=== PATIENT | female | born 1980 | race Caucasian/White ===

== ENCOUNTER 2017-02-20 17:55 | Emergency (ER) | payer MEDICAID ==
[2017-02-20] MEDS ORDERED: LIDOCAINE 5% (700 MG) TRANSDERMAL ADH..PATCH TP ONE (19:54)
[2017-02-20] MEDS ORDERED: KETOROLAC TROMETHAMINE INJ/PF 30 MG/1 ML SDV IV ONE (19:54)
[2017-02-20] MEDS ORDERED: ONDANSETRON HCL INJ/PF 4 MG/2 ML SDV IV ONE (19:54)
[2017-02-20] MEDS ORDERED: DEXAMETHASONE SOD PHOSPHATE INJ 4 MG/1 ML VIAL IV ONE (19:55)
[2017-02-20] MEDS ORDERED: FENTANYL CITRATE INJ/PF 100 MCG/2 ML AMPUL IV ONE (19:55)
[2017-02-20] MEDS ORDERED: HYDROCORTISONE SOD SUCCINATE INJ/PF 100 MG/2 ML SDV IV ONE (19:56)
--- NOTE | 2017-02-20 19:58 | ER Document Report ---
ED General - General Chief Complaint: Pain All Over Stated Complaint: LEG/BACK PAIN Time Seen by Provider: 02/20/17 18:22 Notes: Patient is a 36-year-old female with a past medical history of chronic pain currently on fentanyl patches and hydrocodone, hypothyroidism, Bird's disease , appendectomy, cholecystectomy, oophorectomy who presents with 1 week of progressively worsening low back pain as well as nausea and lightheadedness. Patient is an extremely difficult historian, highly anxious during exam taking infrequently stating that she needs to vomit without actually vomiting. Patient 's main concern appears to be that her back pain has been getting worse after a near syncopal episode 1 week ago. Patient states she was sitting in the toilet and blacked out and woke up on the floor and since that time has had worsening pain in her back which she describes a severe, constant, throbbing pain. Nothing improves or worsens her pain. Patient states that her pain is so bad that "I lay in bed pretty much all day". Patient admits that she is neither wheelchair-bound nor nonambulatory. She has not had any bowel or bladder incontinence since this accident. She has not followed up with primary care doctor regarding today's concerns. 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 However of note the [place] controlled substance database does note the patient regularly obtained narcotic pain medications through her primary care physician on a monthly basis. TRAVEL OUTSIDE OF THE [place] IN LAST 30 DAYS: No - Related Data Allergies/Adverse Reactions: amoxicillin [Amoxicillin] Allergy (Verified 12/16/15 17:05) ciprofloxacin [From Cipro] Allergy (Verified 12/16/15 17:05) morphine [Morphine] Allergy (Verified 12/16/15 17:05) tramadol [Tramadol] Allergy (Verified 12/16/15 17:05) cillin Allergy (Uncoded 11/15/15 19:52) Past Medical History - General Information source: Patient - Social History Smoking Status: Never Smoker Frequency of alcohol use: None Drug Abuse: None Lives with: Spouse/Significant other Family History: Reviewed & Not Pertinent - Past Medical History Cardiac Medical History: Reports: Hx Hypercholesterolemia, Hx Hypertension Endocrine Medical History: Reports: Hx Graves' Disease, Hx Hypothyroidism Musculoskeltal Medical History: Reports Hx Fibromyalgia Psychiatric Medical History: Reports: Hx Anxiety, Hx Depression Past Surgical History: Reports: Hx Appendectomy, Hx Section - x2, Hx Cholecystectomy, Hx Hysterectomy, Hx Thyroid Surgery Review of Systems - Review of Systems Notes: Constitutional: Negative for fever. HENT: Negative for sore throat. Eyes: Negative for visual changes. Cardiovascular: Negative for chest pain. Respiratory: Negative for shortness of breath. Gastrointestinal: Negative for abdominal pain, vomiting or diarrhea. Genitourinary: Negative for dysuria. Musculoskeletal: Positive for back pain. Skin: Negative for rash. Neurological: Negative for headaches, weakness or numbness. 10 point ROS negative except as marked above and in HPI. Physical Exam - Vital signs Vitals: Temp Pulse Resp BP Pulse Ox 98.0 F 76 18 129/82 H 98 02/20/17 18:45 02/20/17 18:45 02/20/17 18:45 02/20/17 18:45 02/20/17 18:45 Interpretation: Normal Notes: PHYSICAL EXAMINATION: GENERAL: Well-appearing, well-nourished and in no acute distress. HEAD: Atraumatic, normocephalic. EYES: Pupils equal round and reactive to light, extraocular movements intact, sclera anicteric, conjunctiva are normal. ENT: nares patent, oropharynx clear without exudates. Moist mucous membranes. NECK: Normal range of motion, supple without lymphadenopathy LUNGS: Breath sounds clear to auscultation bilaterally and equal. No wheezes rales or rhonchi. HEART: Regular rate and rhythm without murmurs ABDOMEN: Soft, nontender, normoactive bowel sounds. No guarding, no rebound. No masses appreciated. EXTREMITIES: Normal range of motion, no pitting or edema. No cyanosis. Neck: No midline step-offs or deformities NEUROLOGICAL: 5 out of 5 strength both distally and proximally bilateral lower extremities. 2+ patellar reflexes bilaterally. No clonus. Sensation grossly intact in the bilateral lower extremities. Patient is able to ambulate without difficulty. PSYCH: Highly anxious, labile mood SKIN: Warm, Dry, normal turgor, no rashes or lesions noted. Course - Re-evaluation Re-evalutation: 02/20/17 19:56 Patient presents with multiple vague complaints that did not appear to be concerning for any acute life-threatening pathology. Vitals are within normal limits at triage. Physical examination is unremarkable. Patient has tolerated oral intake without difficulty. Patient was not noted to be in distress at any point during their ER visit. Patient did complain of chronic, unchanged low back pain as well as right hip pain. She was also complaining of nausea but had no vomiting during her evaluation. She has no neurologic deficit, bowel or bladder incontinence, urinary retention, history of IV drug use, no fever, no difficulty with ambulation. At this time, based on the reassuring evaluation, I do not suspect an acute NC, pulmonary embolus, aortic dissection, acute intra- abdominal pathology, stroke, or sepsis. 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 I have referred her to a local primary care doctor for follow-up these issues as right now it appears that the only medication she is receiving is chronic fentanyl patches and hydrocodone. Patient states that despite her having a diagnosis of severe hypothyroidism and Bird's disease she has not been on any steroids or levothyroxine for over 1 year. Will obtain basic laboratories Will discharge with return precautions and follow-up recommendations. Verbal discharge instructions given a the bedside and opportunity for questions given. Medication warnings reviewed. Patient is in agreement with this plan and has verbalized understanding of return precautions and the need for primary care follow-up in the next 24-72 hours. - Vital Signs Vital signs: Temp Pulse Resp BP Pulse Ox 97.7 F 79 12 97/63 L 96 02/20/17 22:58 02/20/17 22:58 02/20/17 22:58 02/20/17 22:58 02/20/17 22:58 - Laboratory Result Diagrams: 02/20/17 18:58 02/20/17 20:10 Laboratory results interpreted by me: 02/20/17 02/20/17 02/20/17 18:58 20:10 20:10 WBC 11.0 H RDW 15.6 H Seg Neutrophils % 81.1 H Monocytes % 2.4 L Absolute Neutrophils 9.0 H Potassium 3.1 L BUN 21 H Glucose 116 H Total Protein 8.3 H TSH 148.00 H Free T4 0.11 L Urine Protein Urine Ketones Urine Blood Urine Nitrite Ur Leukocyte Esterase Urine Ascorbic Acid 02/20/17 20:50 WBC RDW Seg Neutrophils % Monocytes % Absolute Neutrophils Potassium BUN Glucose Total Protein TSH Free T4 Urine Protein 100 H Urine Ketones 80 H Urine Blood SMALL H Urine Nitrite POSITIVE H Ur Leukocyte Esterase LARGE H Urine Ascorbic Acid 20 H - Diagnostic Test Radiology reviewed: Reports reviewed Discharge - Discharge Clinical Impression: Hypokalemia Hypothyroidism Qualifiers: Hypothyroidism type: unspecified Qualified Code(s): E03.9 - Hypothyroidism, unspecified Chronic pain Qualifiers: Chronic pain type: other chronic pain Qualified Code(s): G89.29 - Other chronic pain Condition: Good Disposition: HOME, SELF-CARE Additional Instructions: Please take the levothyroxine as directed. It is critical that you follow-up with a primary livestock caretaker who can get you into the appropriate endocrinology services and prescribe your medicines. Please return to the emergency room immediately if you experience any concerning symptoms including high fevers, severe headache, chest pain, difficulty breathing, abdominal pain, slurred speech, numbness or weakness in your arms or legs, or any other symptom that concerns you. Prescriptions: Cephalexin Monohydrate [Keflex 500 mg Capsule] 500 mg PO QID #20 capsule Levothyroxine Sodium [Levo-T] 200 mcg PO DAILY #30 tablet Referrals: OLU ROBLES MD [ACTIVE STAFF] - Follow up in 3-5 days
[2017-02-20 20:09] LABS: ABSOLUTE EOSINOPHILS # (AUTO) 0.1 10^3/uL (0.0-0.6); ABSOLUTE LYMPHOCYTES (AUTO) 1.7 10^3/uL (0.5-4.7); ABSOLUTE MONOCYTES (AUTO) 0.3 10^3/uL (0.1-1.4); BASOPHILS % (AUTO) 0.3 % (0-2); EOSINOPHILS % (AUTO) 0.6 % (0-6); HEMATOCRIT 38.7 % (36.0-47.0); HEMOGLOBIN 12.7 g/dL (12.0-15.5); HGB HCT DIFFERENCE -0.6; LYMPHOCYTES % (AUTO) 15.6 % (13-45); MEAN CORPUSCULAR HEMOGLOBIN 30.8 pg (27.0-33.4); MEAN CORPUSCULAR HGB CONC 32.8 g/dL (32.0-36.0); MEAN CORPUSCULAR VOLUME 94 fl (80-97); MONOCYTES % (AUTO) 2.4 % (3-13); RED BLOOD COUNT 4.12 10^6/uL (3.72-5.28); RED CELL DISTRIBUTION WIDTH 15.6 % (11.5-14.0); SEGMENTED NEUTROPHILS % (AUTO) 81.1 % (42-78)
[2017-02-20 20:51] LABS: ALANINE AMINOTRANSFERASE 20 U/L (9-52); ALBUMIN 4.8 g/dL (3.5-5.0); ALKALINE PHOSPHATASE 98 U/L (38-126); ANION GAP 17 (5-19); ASPARTATE AMINO TRANSFERASE 28 U/L (14-36); BILIRUBIN,DIRECT 0.3 mg/dL (0.0-0.4); BILIRUBIN,TOTAL 0.8 mg/dL (0.2-1.3); BLOOD UREA NITROGEN 21 mg/dL (7-20); CALCIUM 9.6 mg/dL (8.4-10.2); CARBON DIOXIDE 22 mmol/L (22-30); CHLORIDE 103 mmol/L (98-107); CREATININE RESULT 0.82 mg/dL (0.52-1.25); GLUCOSE 116 mg/dL (75-110); LIPASE 79.3 U/L (23-300); POTASSIUM 3.1 mmol/L (3.6-5.0); SODIUM 141.9 mmol/L (137-145); TOTAL PROTEIN 8.3 g/dL (6.3-8.2)
--- NOTE | 2017-02-20 20:55 | RADIOLOGY REPORT (SQ) ---
EXAM DESCRIPTION: ABDOMEN 2 VIEWS COMPLETED DATE/TIME: 02/20/2017 8:41 pm REASON FOR STUDY: ab pain, vomiting COMPARISON: 06/06/2016 NUMBER OF VIEWS: Two views. TECHNIQUE: Supine and erect/decubitus radiographic images of the abdomen acquired. LIMITATIONS: None. FINDINGS: FREE AIR: None. No abnormal gas collections. LUNG BASES: Clear. BOWEL GAS PATTERN: Nonobstructive pattern. No dilated loops or air fluid levels. CALCIFICATIONS: No suspicious calcifications. SOFT TISSUES: No gross mass or suggestion of organomegaly. HARDWARE: Right upper quadrant clips. BONES: No acute fracture. No worrisome bone lesions. OTHER: No other significant finding. IMPRESSION: NO RADIOGRAPHIC EVIDENCE FOR ACUTE ABDOMINAL DISEASE. TECHNICAL DOCUMENTATION: JOB ID: [id number] [employer]- All Rights Reserved
[2017-02-20 21:16] LABS: APPEARANCE,URINE SLIGHTLY-CLOUDY; BILIRUBIN,URINE NEGATIVE (NEGATIVE); GLUCOSE, URINE NEGATIVE (NEGATIVE); KETONES,URINE 80 mg/dL (NEGATIVE); LEUKOCYTE ESTERASE,URINE LARGE (NEGATIVE); NITRITE,URINE POSITIVE (NEGATIVE); PROTEIN,URINE 100 mg/dL (NEGATIVE); URINE SPECIFIC GRAVITY 1.027; UROBILINOGEN,URINE NEGATIVE mg/dL (<2.0)
[2017-02-20] MEDS ORDERED: NORMAL SALINE 1000 ML 1,000 ML IV ONE (21:39)
[2017-02-20] MEDS ORDERED: LEVOTHYROXINE SODIUM 0.1 MG TABLET PO ONE (22:34)
[2017-02-20 23:01] VITALS: BP 97/63
[2017-02-20] MEDS ORDERED: MAGNESIUM OXIDE 400 MG TABLET PO ONE (23:04)
[2017-02-20] MEDS ORDERED: POTASSIUM CHLORIDE 10 MEQ TABLET.SA PO ONE (23:04)
[2017-02-20] MEDS ORDERED: CEPHALEXIN 500 MG CAPSULE PO ONE (23:04)
== END 2017-02-20 23:20 | disposition home or self-care (01) ==
LOC: ER 17:55
DX: E87.6 Hypokalemia (principal); E03.9 Hypothyroidism, unspecified; G89.29 Other chronic pain; R52 Pain, unspecified; Z79.899 Other long term (current) drug therapy; M54.9 Dorsalgia, unspecified
CPT/HCPCS: 99284; 96361; 96374; 96375; 36415; 84439; 83690; 84443; 84703; 85025; 80053; 81001; 74020; J3010; J1720; J1885; J2405; J7030

== ENCOUNTER 2017-05-01 08:26 | Emergency (ER) | payer MEDICAID ==
--- NOTE | 2017-05-01 09:34 | ER Document Report ---
ED General - General Information source: Patient TRAVEL OUTSIDE OF THE [place] IN LAST 30 DAYS: No <JUAN DE GUZMAN - Last Filed: 05/01/17 09:29> <ANTONIO CAMEJO - Last Filed: 05/01/17 14:40> - General Stated Complaint: WEAKNESS Time Seen by Provider: 05/01/17 09:13 Notes: Patient is a 36 year old female who presents to the ED with complaints of weakness, tremors and muscle twitching. Patient has not slept in 2 days. Patient states she is dizzy and has blurred and double vision. Patient has been able to eat normally. Patient states she is not taking her medication for Addisons because she cannot get a doctor to prescribe them for. When she was in the ED on 02/20/2017 she was given a prescription for her thyroid medication she states. Patient was found to be non complaint on that day with all prescription medication except for her Narcotic pain medication. 29 days ago patient filled her Fentanyl patch and Hydrocodone. Today patient adds that she is having extreme back pain and she is out of her Fentanyl patch. (JUAN DE GUZMAN) This female patient comes emergency room by EMS complaining of weakness for 2 days worse today, muscle spasms, unable to sleep, dizziness. The patient filled a prescription for 15 fentanyl patches on 04/03/2017. That should last for 45 days, or another 2 weeks from today. She states she has to left and is not wearing one now.. She states she has hydrocodone at home and took one yesterday, but the urine drug screen done today is negative for opiates. The spouse reports that she seems asked the same questions repeatedly, seems to be forgetful and cannot remember having this done things. He and she both claim this has never happened before. Review of the records shows she was seen here on 10/27/2015 shortly after moving here from [place] when she reported blacking out spell and then finding herself walking down the road 3-1/2 miles from her house. She did have a negative CT scan of the head done on that visit. At that time the provider contacted her doctor in [place] who stated he was never able to prove conclusively that she did have Bird's, and also reported she had been on high-dose chronic narcotic medication for at least 2 years. (ANTONIO CAMEJO) - Related Data Allergies/Adverse Reactions: amoxicillin [Amoxicillin] Allergy (Verified 05/01/17 13:48) ciprofloxacin [From Cipro] Allergy (Verified 05/01/17 13:48) morphine [Morphine] Allergy (Verified 05/01/17 13:48) tramadol [Tramadol] Allergy (Verified 05/01/17 13:48) cillin Allergy (Uncoded 05/01/17 13:48) Past Medical History - General Information source: Patient - Social History Smoking Status: Unknown if Ever Smoked Family History: Reviewed & Not Pertinent - Past Medical History Cardiac Medical History: Reports: Hx Hypercholesterolemia, Hx Hypertension Endocrine Medical History: Reports: Hx Graves' Disease, Hx Hypothyroidism Musculoskeltal Medical History: Reports Hx Fibromyalgia Psychiatric Medical History: Reports: Hx Anxiety, Hx Depression Past Surgical History: Reports: Hx Appendectomy, Hx Section - x2, Hx Cholecystectomy, Hx Hysterectomy, Hx Thyroid Surgery <JUAN DE GUZMAN - Last Filed: 05/01/17 09:29> Review of Systems - Review of Systems Constitutional: See HPI, Weakness EENT: See HPI, Blurred vision, Double vision Cardiovascular: See HPI, Dizziness Respiratory: No symptoms reported Gastrointestinal: No symptoms reported Genitourinary: No symptoms reported Female Genitourinary: No symptoms reported Musculoskeletal: See HPI, Back pain, Other - muscle twitching Skin: No symptoms reported Hematologic/Lymphatic: No symptoms reported Neurological/Psychological: See HPI, Weakness, Tremor <JUAN DE GUZMAN - Last Filed: 05/01/17 09:29> Physical Exam - General General appearance: Alert, Other - looks at you with wide eyes, rocking back and forth, talking a lot - HEENT Head: Normocephalic, Atraumatic Eyes: Normal Extraocular movements intact: Yes Pupils: PERRL Mucous membranes: Dry - Respiratory Respiratory status: No respiratory distress Breath sounds: Normal - Cardiovascular Rhythm: Regular Heart sounds: Normal auscultation Murmur: No - Abdominal Inspection: Normal - Back Back: Normal - Extremities General upper extremity: Normal inspection, Normal ROM, Other - she is jerking her upper extremities General lower extremity: Normal inspection, Normal ROM - Neurological Neuro grossly intact: Yes - Skin Skin Temperature: Warm Skin Moisture: Dry Skin Color: Normal <JUAN DE GUZMAN - Last Filed: 05/01/17 09:29> - Vital signs Vitals: Resp Pulse Ox 14 99 05/01/17 08:54 05/01/17 08:54 Course <JUAN DE GUZMAN - Last Filed: 05/01/17 09:29> - Laboratory Result Diagrams: 05/01/17 09:15 05/01/17 09:15 - Diagnostic Test Radiology reviewed: Image reviewed, Reports reviewed - The patient did not cooperate staying still, but there is no gross abnormality seen on CT scan of the head <ANTONIO CAMEJO - Last Filed: 05/01/17 14:40> - Re-evaluation Re-evalutation: 05/01/17 12:08 Patient was given Zanaflex which she has been prescribed many times in the past. She is also given 100 mg of Solu-Cortef IV, 1 L of normal saline IV, and 100 mcg of Synthroid. At this time she is sound asleep and snoring quite loudly with a pulse in the 70s and a pulse ox of 97% on room air. She had previously stated that she had not been able to sleep due to the muscle twitching and back pain. She does have Zanaflex at home by history. 05/01/17 13:40 After the patient woke up I was speaking with her and the spouse for quite some time she seemed quite relaxed, they both are concerned about her not remembering things that she has just done. At this past left the room she continued to inquire about what could be wrong. I told her that there is a good possibility this was psychiatric, and as an example I described the twitching that she had been doing. She immediately began twitching just as she did when I first saw her a few hours ago. She had not been twitching the entire time since she fell asleep until just after I mentioned it. A CT scan of the brain will be done to satisfy the patient and her spouse and to help exclude an emergency neurological problem. 05/01/17 14:33 The patient is again sound asleep and snoring. I reviewed the negative scan results with the spouse. I then reviewed a prior visit in November 2015 when she came in as an involuntary commitment from the crisis center. At that time it reported she was developing some stuttering and cramping in her legs since running out of pain medication. I told the spouse that is clearly a psychiatric response to stress and that is why I think the same thing is occurring now. The fact that her urine drug screen is negative for opiates would suggest that she probably has run out of her hydrocodone. The fact that she does not have fentanyl patch on would suggest that she probably has run out of her fentanyl patches. Given the large doses of narcotics she has taken for such a long time it would be unlikely the patient would voluntarily stop taking the medication I have advised spouse to follow-up with primary care provider for referral to a psychologist or psychiatrist to further evaluate her symptoms if they continue. She will receive a prescription for the hydrocortisone because I have no way of knowing for certain if she really does need that medication. It appears she has had a month supply prescribed from this emergency room on 3 other occasions. (ANTONIO CAMEJO) - Vital Signs Vital signs: Temp Pulse Resp BP Pulse Ox 10 L 126/67 H 100 05/01/17 14:02 05/01/17 14:02 05/01/17 14:02 - Laboratory Laboratory results interpreted by me: 05/01/17 05/01/17 05/01/17 09:15 09:15 09:15 RBC 3.55 L Hgb 11.6 L Hct 33.3 L Sodium 147.2 H Chloride 111 H Free T4 0.68 L Free T3 pg/mL 2.32 L Urine Nitrite 05/01/17 10:13 RBC Hgb Hct Sodium Chloride Free T4 Free T3 pg/mL Urine Nitrite POSITIVE H Discharge <JUAN DE GUZMAN - Last Filed: 05/01/17 09:29> <ANTONIO CAMEJO - Last Filed: 05/01/17 14:40> - Discharge Clinical Impression: Muscle twitching, Memory problem Unable to sleep Qualifiers: Insomnia type: unspecified Qualified Code(s): G47.00 - Insomnia, unspecified Condition: Stable Disposition: HOME, SELF-CARE Additional Instructions: Your blood work, urine, and brain scan were all unremarkable. There is no clear explanation for your symptoms of twitching and jerking and memory problems. These symptoms are often due to underlying psychological problems. You were able to sleep quite deeply and for a good while after receiving 1 dose of Zanaflex(tizanidine). You report that you do have all of your medications except for the hydrocortisone. You will receive a prescription for the hydrocortisone. You should continue your regular medications. You should follow-up with your primary care provider this week for further evaluation of your neurological symptoms and referral to a psychologist or psychiatrist if they feel it is warranted. RETURN TO THE EMERGENCY ROOM IF ANY NEW OR WORSENING SYMPTOMS. Prescriptions: Hydrocortisone 20 mg PO BID #60 tablet Scribe Attestation: 05/01/17 12:10 I personally performed the services described in the documentation, reviewed and edited the documentation which was dictated to the scribe in my presence, and it accurately records my words and actions. (ANTONIO CAMEJO) Scribe Documentation - Scribe Written by Kinjal:: kinjal Larios, 05/01/2017, 0929 acting as scribe for :: Janet <JUAN DE GUZMAN - Last Filed: 05/01/17 09:29>
[2017-05-01] MEDS ORDERED: NORMAL SALINE 1000 ML 1,000 ML IV ONE (09:36)
[2017-05-01] MEDS ORDERED: HYDROCORTISONE SOD SUCCINATE INJ/PF 100 MG/2 ML SDV IV ONE (09:37)
[2017-05-01 09:44] LABS: ABSOLUTE EOSINOPHILS # (AUTO) 0.1 10^3/uL (0.0-0.6); ABSOLUTE LYMPHOCYTES (AUTO) 3.1 10^3/uL (0.5-4.7); ABSOLUTE MONOCYTES (AUTO) 0.6 10^3/uL (0.1-1.4); ABSOLUTE NEUT (AUTO) 4.6 10^3/uL (1.7-8.2); BASOPHILS % (AUTO) 0.5 % (0-2); EOSINOPHILS % (AUTO) 1.6 % (0-6); HEMATOCRIT 33.3 % (36.0-47.0); HEMOGLOBIN 11.6 g/dL (12.0-15.5); HGB HCT DIFFERENCE 1.5; LYMPHOCYTES % (AUTO) 36.8 % (13-45); MEAN CORPUSCULAR HEMOGLOBIN 32.6 pg (27.0-33.4); MEAN CORPUSCULAR HGB CONC 34.7 g/dL (32.0-36.0); MEAN CORPUSCULAR VOLUME 94 fl (80-97); MONOCYTES % (AUTO) 6.6 % (3-13); RED BLOOD COUNT 3.55 10^6/uL (3.72-5.28); RED CELL DISTRIBUTION WIDTH 13.1 % (11.5-14.0); SEGMENTED NEUTROPHILS % (AUTO) 54.5 % (42-78); WHITE BLOOD COUNT 8.5 10^3/uL (4.0-10.5)
[2017-05-01 10:00] LABS: ALANINE AMINOTRANSFERASE 20 U/L (9-52); ALBUMIN 4.3 g/dL (3.5-5.0); ALKALINE PHOSPHATASE 108 U/L (38-126); ANION GAP 13 (5-19); ASPARTATE AMINO TRANSFERASE 21 U/L (14-36); BILIRUBIN,DIRECT 0.3 mg/dL (0.0-0.4); BILIRUBIN,TOTAL 0.3 mg/dL (0.2-1.3); BLOOD UREA NITROGEN 10 mg/dL (7-20); CALCIUM 9.4 mg/dL (8.4-10.2); CARBON DIOXIDE 23 mmol/L (22-30); CHLORIDE 111 mmol/L (98-107); CREATININE RESULT 0.73 mg/dL (0.52-1.25); GLUCOSE 89 mg/dL (75-110); MAGNESIUM 2.1 mg/dL (1.6-2.3); POTASSIUM 3.8 mmol/L (3.6-5.0); SODIUM 147.2 mmol/L (137-145); TOTAL PROTEIN 7.3 g/dL (6.3-8.2)
[2017-05-01 10:17] LABS: FREE T3 2.32 pg/mL (2.77-5.27)
[2017-05-01 10:37] LABS: APPEARANCE,URINE SLIGHTLY-CLOUDY; BILIRUBIN,URINE NEGATIVE (NEGATIVE); GLUCOSE, URINE NEGATIVE (NEGATIVE); KETONES,URINE NEGATIVE (NEGATIVE); LEUKOCYTE ESTERASE,URINE NEGATIVE (NEGATIVE); NITRITE,URINE POSITIVE (NEGATIVE); PROTEIN,URINE NEGATIVE (NEGATIVE); URINE SPECIFIC GRAVITY 1.012; UROBILINOGEN,URINE NEGATIVE mg/dL (<2.0)
[2017-05-01] MEDS ORDERED: LEVOTHYROXINE SODIUM 0.1 MG TABLET PO ONE (10:37)
[2017-05-01] MEDS ORDERED: TIZANIDINE HCL 4 MG TABLET PO ONE (10:40)
[2017-05-01 10:48] LABS: URINE BARBITURATES SCREEN NEGATIVE; URINE METHADONE SCREEN NEGATIVE; URINE OPIATES LOW NEGATIVE; URINE PHENCYCLIDINE SCREEN NEGATIVE
--- NOTE | 2017-05-01 14:03 | RADIOLOGY REPORT (SQ) ---
EXAM DESCRIPTION: CT HEAD WITHOUT COMPLETED DATE/TIME: 05/01/2017 1:53 pm REASON FOR STUDY: TWITCHING, MEMORY LAPSES COMPARISON: CT brain 10/27/2015 TECHNIQUE: Axial images acquired through the brain without intravenous contrast. Images reviewed wi th bone, brain and subdural windows. Images stored on PACS. All CT scanners at this facility use dose modulation, iterative reconstruction, and/or weight based d osing when appropriate to reduce radiation dose to as low as reasonably achievable (ALARA). [facility]: Dose Right [facility]: CareDose [facility]: Dose Right [facility]: Teradose 4D [facility]: [employer] RADIATION DOSE: Up-to-date CT equipment and radiation dose reduction techniques were employed. CTDIv ol: 50.5 mGy. DLP: 909 mGy-cm. mGy. LIMITATIONS: Motion artifact throughout the study FINDINGS: Motion artifact throughout the study. On images without motion, no gross acute intracranial hemorrhage mass effect or midline shift is pres ent. No CT evidence of large territory ischemic change. IMPRESSION: Very limited negative study TECHNICAL DOCUMENTATION: JOB ID: [id number] Quality ID # [id number]: Final reports with documentation of one or more dose reduction techniques (e.g., Au tomated exposure control, adjustment of the mA and/or kV according to patient size, use of iterative reconstruction technique) 2010 [email or web address]- All Rights Reserved
[2017-05-01 15:27] VITALS: BP 106/85
== END 2017-05-01 15:54 | disposition home or self-care (01) ==
LOC: ER 08:26
DX: R25.3 Fasciculation (principal); G47.00 Insomnia, unspecified; R41.3 Other amnesia; R53.1 Weakness; R42 Dizziness and giddiness; H53.8 Other visual disturbances; H53.2 Diplopia; R25.1 Tremor, unspecified; M54.9 Dorsalgia, unspecified; I10 Essential (primary) hypertension; Z91.14 Patient's other noncompliance with medication regimen; Z88.0 Allergy status to penicillin; Z55.0 Illiteracy and low-level literacy; Z88.5 Allergy status to narcotic agent; E03.9 Hypothyroidism, unspecified
CPT/HCPCS: 99285; 96374; 36415; 87040; 84439; 83735; 85025; 87077; 80053; 81001; 87186; 80307; 84481; 70450; J3490 ×2; J1720; J7030

== ENCOUNTER 2017-08-07 00:33 | Emergency (ER) | payer MEDICAID ==
--- NOTE | 2017-08-07 00:52 | ER Document Report ---
ED General - General Chief Complaint: Difficulty Swallowing Stated Complaint: UNABLE TO SWALLOW Time Seen by Provider: 08/07/17 00:41 Notes: Patient is a 37-year-old female who presents with complaint of symptoms that started after starting symptom. She was placed on Nucynta because she has a history of what sounds to be degenerative disc disease in her back. She says his first time she has ever had medication. She did not start medication she is having some difficulty swallowing and also felt dizzy and at times feels as if she is slightly confused. No fevers. No facial swelling. No itching. No rash. No tongue swelling. No lip swelling. No other complaints at this time. No other new medications. TRAVEL OUTSIDE OF THE [place] IN LAST 30 DAYS: No - Related Data Allergies/Adverse Reactions: amoxicillin [Amoxicillin] Allergy (Verified 05/01/17 13:48) ciprofloxacin [From Cipro] Allergy (Verified 05/01/17 13:48) morphine [Morphine] Allergy (Verified 05/01/17 13:48) tramadol [Tramadol] Allergy (Verified 05/01/17 13:48) cillin Allergy (Uncoded 05/01/17 13:48) Past Medical History - Social History Smoking Status: Unknown if Ever Smoked Frequency of alcohol use: None Drug Abuse: None Family History: Reviewed & Not Pertinent - Past Medical History Cardiac Medical History: Reports: Hx Hypercholesterolemia, Hx Hypertension Endocrine Medical History: Reports: Hx Graves' Disease, Hx Hypothyroidism Musculoskeltal Medical History: Reports Hx Fibromyalgia Psychiatric Medical History: Reports: Hx Anxiety, Hx Depression Past Surgical History: Reports: Hx Appendectomy, Hx Section - x2, Hx Cholecystectomy, Hx Hysterectomy, Hx Thyroid Surgery - Immunizations Hx Diphtheria, Pertussis, Tetanus Vaccination: No Review of Systems - Review of Systems Notes: My Normal Review Basic REVIEW OF SYSTEMS: CONSTITUTIONAL : Denies fever, chills, or sweats. Denies recent illness. EENT: Denies eye, ear, throat, or mouth pain or symptoms. Denies nasal or sinus congestion. RESPIRATORY: Denies cough, cold, or chest congestion. Denies shortness of breath, difficulty breathing, or wheezing. GASTROINTESTINAL: Denies abdominal pain. Denies nausea, vomiting, or diarrhea. Cessation of difficulty swallowing. GENITOURINARY: Denies difficulty urinating, painful urination, burning, frequency, or blood in urine. MUSCULOSKELETAL: Denies neck or back pain or joint pain or swelling. SKIN: Denies rash or skin lesions. NEUROLOGICAL: Denies altered mental status or loss of consciousness. Feels somewhat dizzy at times. Denies headache. Denies weakness or paralysis or loss of use of either side. Denies problems with gait or speech. Denies sensory or motor loss. ALL OTHER SYSTEMS REVIEWED AND NEGATIVE. Physical Exam - Vital signs Vitals: Temp 97.4 F 08/07/17 00:41 - Notes Notes: General Appearance: Well nourished, alert, cooperative, no acute distress, no obvious discomfort. Well Appearing. Vitals: reviewed, See vital signs table. Head: no swelling or tenderness to the head Eyes: PERRL, EOMI, Conjuctiva clear Mouth: No decreasd moisture Throat: No tonsillar inflammation, No airway obstruction, No lymphadenopathy Neck: Supple, no neck tenderness, No thyromegaly Lungs: No wheezing, No rales, No rhonci, No accessory muscle use, good air exchange bilaterally. Heart: Normal rate, Regular rythm, No murmur, no rub Abdomen: Normal BS, soft, No rigidity, No abdominal tenderness, No guarding, no rebound, no abdominal masses, no organomegaly Extremities: strength 5/5 in all extremities, good pulses in all extremities, no swelling or tenderness in the extremities, no edema. Skin: warm, dry, appropriate color, no rash Neuro: speech clear, oriented x 3, normal affect, responds appropriately to questions. We will nerves II through XII are intact. Distal sensation intact. Patient is able move all extremities without difficulty. Course - Re-evaluation Re-evalutation: 08/07/17 01:41 Patient is now saying that she is seeing cartoon characters on the ground. She looks at me and says her eyes are moving fast back and forth. Her eyes are not moving fast when she does moving back and forth it seems voluntary. Patient continues to be well-appearing. Says she thinks she might be having a seizure because when her has seizure sometimes his eyes move back and forth. I informed her that she is not having a seizure. She is awake and alert and talking appropriately and her eyes are not rapidly moving back and forth. 08/07/17 03:18 Patient is now feeling much improved. She looks well. She is no longer hallucinating. A talk to her and her family. Informed him that she should no longer taking Nucynta. She is to call her primary care doctor in the morning to talk about different medication options. Patient encouraged to return to ER if she has recurrence of symptoms or feels unwell again. Patient agrees with plan will be discharged home. Dictation of this chart was performed using voice recognition software; therefore, there may be some unintended grammatical errors. - Vital Signs Vital signs: Temp Pulse Resp BP Pulse Ox 97.4 F 13 129/93 H 95 08/07/17 00:41 08/07/17 02:01 08/07/17 02:01 08/07/17 02:01 - Laboratory Result Diagrams: 08/07/17 01:45 08/07/17 01:45 Laboratory results interpreted by me: 08/07/17 01:45 RDW 15.0 H Discharge - Discharge Clinical Impression: Medication reaction Qualifiers: Encounter type: initial encounter Qualified Code(s): T88.7XXA - Unspecified adverse effect of drug or medicament, initial encounter Condition: Good Disposition: HOME, SELF-CARE Additional Instructions: Please return to the ER immediately if you develop worsening of your symptoms or feel unwell. Please stop taking the Nucynta and follow up with your doctor to talk to them about other pain management options.
[2017-08-07 01:54] LABS: ABSOLUTE EOSINOPHILS # (AUTO) 0.2 10^3/uL (0.0-0.6); ABSOLUTE MONOCYTES (AUTO) 0.3 10^3/uL (0.1-1.4); ABSOLUTE NEUT (AUTO) 3.1 10^3/uL (1.7-8.2); BASOPHILS % (AUTO) 0.5 % (0-2); EOSINOPHILS % (AUTO) 2.4 % (0-6); HEMATOCRIT 36.1 % (36.0-47.0); HEMOGLOBIN 12.5 g/dL (12.0-15.5); HGB HCT DIFFERENCE 1.4; LYMPHOCYTES % (AUTO) 44.7 % (13-45); MEAN CORPUSCULAR HEMOGLOBIN 31.1 pg (27.0-33.4); MEAN CORPUSCULAR HGB CONC 34.6 g/dL (32.0-36.0); MEAN CORPUSCULAR VOLUME 90 fl (80-97); MONOCYTES % (AUTO) 5.2 % (3-13); RED BLOOD COUNT 4.01 10^6/uL (3.72-5.28); SEGMENTED NEUTROPHILS % (AUTO) 47.2 % (42-78); WHITE BLOOD COUNT 6.7 10^3/uL (4.0-10.5)
[2017-08-07 02:16] LABS: ANION GAP 15 (5-19); BLOOD UREA NITROGEN 11 mg/dL (7-20); CALCIUM 9.6 mg/dL (8.4-10.2); CARBON DIOXIDE 25 mmol/L (22-30); CHLORIDE 104 mmol/L (98-107); CREATININE RESULT 0.86 mg/dL (0.52-1.25); GLUCOSE 92 mg/dL (75-110); MAGNESIUM 2.1 mg/dL (1.6-2.3); POTASSIUM 4.1 mmol/L (3.6-5.0); SODIUM 143.7 mmol/L (137-145)
[2017-08-07 03:24] VITALS: BP 134/92
== END 2017-08-07 03:30 | disposition home or self-care (01) ==
LOC: ER 00:33
DX: R13.10 Dysphagia, unspecified (principal); R42 Dizziness and giddiness; R41.0 Disorientation, unspecified; R44.1 Visual hallucinations; T40.2X5A Adverse effect of other opioids, initial encounter; Z88.0 Allergy status to penicillin; Z88.1 Allergy status to other antibiotic agents; Z88.5 Allergy status to narcotic agent; I10 Essential (primary) hypertension
CPT/HCPCS: 36415; 80048; 83735; 85025; 99284

== ENCOUNTER 2018-03-16 03:44 | Inpatient (IN) | payer MEDICAID ==
[2018-03-16] MEDS ORDERED: HYDROCORTISONE SOD SUCCINATE INJ/PF 100 MG/2 ML SDV IV ONE (03:55)
--- NOTE | 2018-03-16 04:06 | ER Document Report ---
ED General - General Stated Complaint: DIZZY/WEAKNESS Time Seen by Provider: 03/16/18 03:54 Notes: Patient is a 37-year-old female presents with complaint of feeling very weak. She says that this is progressively worse worsening over last several days. Patient has a history of adrenal insufficiency, hypothyroidism, previous thyroidectomy, pernicious anemia. Patient was followed by an hot dip plater in [place] but then moved here. She did have a doctor here who since moved away. She has now been without a doctor for several months and therefore has been out of her medications for several months. She says she has an appointment with a new doctor on the but has been feeling worse and worse and therefore has come to the ER. She denies any difficulty breathing. No chest pain. No fevers. No recent infections. No dysuria. No abdominal pain. She has some chronic back pain for which she does see pain management for. She has previous history of hysterectomy and therefore has not had any significant vaginal bleeding. TRAVEL OUTSIDE OF THE [place] IN LAST 30 DAYS: No - Related Data Allergies/Adverse Reactions: amoxicillin [Amoxicillin] Allergy (Verified 03/16/18 04:14) ciprofloxacin [From Cipro] Allergy (Verified 03/16/18 04:14) tramadol [Tramadol] Allergy (Verified 03/16/18 04:14) cillin Allergy (Uncoded 05/01/17 13:48) Past Medical History - Social History Smoking Status: Unknown if Ever Smoked Frequency of alcohol use: None Drug Abuse: None Family History: Reviewed & Not Pertinent - Past Medical History Cardiac Medical History: Reports: Hx Hypercholesterolemia, Hx Hypertension Endocrine Medical History: Reports: Hx Graves' Disease, Hx Hypothyroidism Renal/ Medical History: Denies: Hx Peritoneal Dialysis Musculoskeltal Medical History: Reports Hx Fibromyalgia Psychiatric Medical History: Reports: Hx Anxiety, Hx Depression Past Surgical History: Reports: Hx Appendectomy, Hx Section - x2, Hx Cholecystectomy, Hx Hysterectomy, Hx Thyroid Surgery - Immunizations Hx Diphtheria, Pertussis, Tetanus Vaccination: No Review of Systems - Review of Systems Notes: My Normal Review Basic REVIEW OF SYSTEMS: CONSTITUTIONAL : Denies fever, chills, or sweats. Has felt very weak. EENT: Denies eye, ear, throat, or mouth pain or symptoms. Denies nasal or sinus congestion. CARDIOVASCULAR: Denies chest pain. RESPIRATORY: Denies cough, cold, or chest congestion. Denies shortness of breath, difficulty breathing, or wheezing. GASTROINTESTINAL: Denies abdominal pain. Denies nausea, vomiting, or diarrhea. Denies constipation. Last BM: GENITOURINARY: Denies difficulty urinating, painful urination, burning, frequency, or blood in urine. MUSCULOSKELETAL: Cramping and pain into the hands and feet. SKIN: Denies rash or skin lesions. NEUROLOGICAL: Denies altered mental status or loss of consciousness. Denies headache. Denies weakness or paralysis or loss of use of either side. Denies problems with gait or speech. Denies sensory or motor loss. ALL OTHER SYSTEMS REVIEWED AND NEGATIVE. Physical Exam - Vital signs Vitals: BP Pulse Ox 111/86 H 98 03/16/18 03:48 03/16/18 03:48 - Notes Notes: General Appearance: alert, cooperative, no acute distress, no obvious discomfort. Patient is pale and weak appearing. Vitals: reviewed, See vital signs table. Head: no swelling or tenderness to the head Eyes: PERRL, EOMI, Conjuctiva clear Mouth: No decreasd moisture Throat: No tonsillar inflammation, No airway obstruction, No lymphadenopathy Neck: Supple, no neck tenderness, scar over anterior neck from previous thyroidectomy. Lungs: No wheezing, No rales, No rhonci, No accessory muscle use, good air exchange bilaterally. Heart: Normal rate, Regular rythm, No murmur, no rub Abdomen: Normal BS, soft, No rigidity, No abdominal tenderness, No guarding, no rebound, no abdominal masses, no organomegaly Extremities: strength 5/5 in all extremities, good pulses in all extremities, no swelling or tenderness in the extremities, trace lower extremity edema. Skin: warm, dry, pale color, no rash Neuro: speech clear, oriented x 3, normal affect, responds appropriately to questions. Cranial nerves II through XII are intact. Distal sensation intact. Patient moves all extremities without difficulty. Course - Re-evaluation Re-evalutation: 03/16/18 06:07 Patient's thyroid studies came back showing severe hypothyroidism as expected being the patient has been without her medications for some time now. I did initially order 200 mcg of IV levothyroxine. I then called the hospitalist. I spoke with Dr. Singh. He requested I give oral 200 mcg instead as he feels this is safer being that the patient is not altered. She is weak, but not altered so I do feel comfortable giving it orally. I have canceled the IV dosing the patient did not receive IV dose. Patient will be given 200 mcg orally of levothyroxine. Her sodium and potassium do not suggest that she is in adrenal crisis at this time. Because of her history of renal sufficiency I did give her hydrocortisone 100 mg upfront as I suspect that this will probably help her blood pressure. She is not significantly anemic. Her vitamin B12 is just a little bit low. Folate is normal. Magnesium is normal. At this time patient will be admitted to the hospitalist service. Dictation of this chart was performed using voice recognition software; therefore, there may be some unintended grammatical errors. - Vital Signs Vital signs: Temp Pulse Resp BP Pulse Ox 97.5 F 14 90/70 L 98 03/16/18 03:50 03/16/18 04:00 03/16/18 04:01 03/16/18 04:00 - Laboratory Result Diagrams: 03/16/18 03:48 03/16/18 03:48 Laboratory results interpreted by me: 03/16/18 03/16/18 03/16/18 03:48 03:48 03:48 RDW 16.2 H Sodium 146.2 H Creatinine 1.51 H Est GFR ( Amer) 47 L Est GFR (Non-Af Amer) 39 L Direct Bilirubin 0.5 H Vitamin B12 199.0 L TSH > 100.00 H Free T4 < 0.07 L Free T3 pg/mL 0.58 L - EKG Interpretation by Me Additional EKG results interpreted by me: 03/16/18 04:05 EKG is reviewed and interpreted by me. EKG shows what the machine reads as accelerated junctional rhythm with rate 75. I think is actually sinus rhythm is just a P waves are difficult to determine. TX interval, QRS duration, QTc intervals are within normal range. No old EKG available for comparison at this time. Discharge - Discharge Clinical Impression: Weakness Hypothyroidism Qualifiers: Hypothyroidism type: postoperative Qualified Code(s): E89.0 - Postprocedural hypothyroidism Condition: Stable Disposition: ADMITTED OBSERVATION Admitting Provider: Hospitalist Unit Admitted: IMCU Referrals: HARLAN TOLENTINO, ADY-C [Primary Care Provider] - Follow up as needed
[2018-03-16 04:17] LABS: ABSOLUTE LYMPHOCYTES (AUTO) 2.4 10^3/uL (0.5-4.7); ABSOLUTE MONOCYTES (AUTO) 0.3 10^3/uL (0.1-1.4); ABSOLUTE NEUT (AUTO) 4.2 10^3/uL (1.7-8.2); BASOPHILS % (AUTO) 0.3 % (0-2); EOSINOPHILS % (AUTO) 0.1 % (0-6); HEMATOCRIT 37.4 % (36.0-47.0); HEMOGLOBIN 12.8 g/dL (12.0-15.5); LYMPHOCYTES % (AUTO) 35.4 % (13-45); MEAN CORPUSCULAR HEMOGLOBIN 31.6 pg (27.0-33.4); MEAN CORPUSCULAR HGB CONC 34.3 g/dL (32.0-36.0); MEAN CORPUSCULAR VOLUME 92 fl (80-97); MONOCYTES % (AUTO) 3.9 % (3-13); PLATELET COUNT 271 10^3/uL (150-450); RED BLOOD COUNT 4.06 10^6/uL (3.72-5.28); RED CELL DISTRIBUTION WIDTH 16.2 % (11.5-14.0); SEGMENTED NEUTROPHILS % (AUTO) 60.3 % (42-78); TOTAL CELLS COUNTED % (AUTO) 100 %; WHITE BLOOD COUNT 6.9 10^3/uL (4.0-10.5)
[2018-03-16 04:37] LABS: ALANINE AMINOTRANSFERASE 32 U/L (9-52); ALBUMIN 4.7 g/dL (3.5-5.0); ALKALINE PHOSPHATASE 82 U/L (38-126); ANION GAP 17 (5-19); ASPARTATE AMINO TRANSFERASE 35 U/L (14-36); BILIRUBIN,DIRECT 0.5 mg/dL (0.0-0.4); BILIRUBIN,TOTAL 0.7 mg/dL (0.2-1.3); BLOOD UREA NITROGEN 12 mg/dL (7-20); CALCIUM 9.5 mg/dL (8.4-10.2); CARBON DIOXIDE 24 mmol/L (22-30); CHLORIDE 105 mmol/L (98-107); GLUCOSE 90 mg/dL (75-110); POTASSIUM 3.8 mmol/L (3.6-5.0); SODIUM 146.2 mmol/L (137-145); TOTAL PROTEIN 7.8 g/dL (6.3-8.2)
[2018-03-16 05:05] LABS: FREE T3 0.58 pg/mL (2.77-5.27)
[2018-03-16] MEDS ORDERED: NORMAL SALINE 1000 ML 1,000 ML IV ONE (05:15)
[2018-03-16 05:26] LABS: FREE T4 (FREE THYROXINE) < 0.07 ng/dL (0.78-2.19); THYROID STIMULATING HORMONE > 100.00 uIU/mL (0.47-4.68)
[2018-03-16 05:48] LABS: FOLATE 9.21 ng/mL (>2.76)
[2018-03-16] MEDS ORDERED: LEVOTHYROXINE SODIUM INJ/PF 0.1 MG SDV IV ONE (05:52)
[2018-03-16] MEDS ORDERED: LIOTHYRONINE SODIUM 25 MCG TABLET PO ONE (05:55)
[2018-03-16] MEDS ORDERED: LEVOTHYROXINE SODIUM 0.1 MG TABLET PO ONE (06:04)
[2018-03-16] MEDS ORDERED: ACETAMINOPHEN 325 MG TABLET PO PRN (06:05)
[2018-03-16] MEDS ORDERED: MAG HYDROX/AL HYDROX/SIMETH SUSP 30 ML UDCUP PO PRN (06:05)
[2018-03-16] MEDS ORDERED: IPRATROPIUM/ALBUTEROL 0.5-2.5 MG/3 ML AMPUL NEB PRN (06:05)
[2018-03-16] MEDS ORDERED: HEPARIN SOD (PORCINE) 5,000 UNIT/ML 1 ML SYRINGE ONE (06:40)
--- NOTE | 2018-03-16 06:53 | PDOC H&P ---
History of Present Illness Admission Date/PCP: 03/16/18 06:17 ADY FUENTES-C Patient complains of: Profound fatigue and nausea History of Present Illness: RODGER MONTANEZ is a 37 year old female with a past medical history of anxiety, chronic pain, pituitary adenoma, Bird's disease, hypothyroidism and poor compliance. Patient presents with several weeks of profound fatigue and nausea. She has been without adrenal and thyroid replacement medications for several weeks for unclear reasons. She states she is a patient of [facility] but is unable to provide prescription bottles. In the emergency room she is found to be hypotensive, hypothermic. She receives IV Solu-Medrol, IV fluids and referred the hospitalist for admission. The patient is requesting narcotics. She denies chest pain and shortness of breath. Past Medical History Cardiac Medical History: Reports: Hyperlipidema, Hypertension Endocrine Medical History: Reports: Hypothyroidism, Obesity Musculoskeltal Medical History: Reports: Fibromyalgia Psychiatric Medical History: Reports: Depression, General Anxiety Disorder Past Surgical History Past Surgical History: Reports: Appendectomy, Section - x2, Cholecystectomy, Hysterectomy Social History Information Source: Patient Smoking Status: Unknown if Ever Smoked Frequency of Alcohol Use: None Hx Recreational Drug Use: No Drugs: None Hx Prescription Drug Abuse: No - Advance Directive Resuscitation Status: Full Code Family History Family History: Hypertension Parental Family History Reviewed: Yes Children Family History Reviewed: Yes Sibling(s) Family History Reviewed.: Yes Medication/Allergy Home Medications: Cetirizine HCl [Zyrtec] 10 mg PO DAILY 12/16/15 Ibuprofen 800 mg PO TID PRN 12/16/15 Liothyronine Sodium 10 mcg PO QHS 12/16/15 Zolpidem Tartrate [Ambien] 1 tab PO DAILY 12/16/15 Cyanocobalamin (Vitamin B-12) [Vitamin B-12 Inj 1000 Mcg/1 ml Vial] 2 ml IM Q7D 12/22/15 Metoprolol Succinate [Toprol Xl 50 mg Tab.sr] 50 mg PO DAILY 12/22/15 Octreotide Acetate [Sandostatin] 1 ml IJ TID 12/22/15 Tizanidine HCl [Zanaflex] 6 mg PO TID 12/22/15 Alprazolam [Xanax 0.5 mg Tablet] 0.5 mg PO BID #14 tablet 12/23/15 Calcitriol [Rocaltrol 0.5 mcg Capsule] 1 tab PO DAILY #30 capsule 12/23/15 Calcitriol [Rocaltrol 0.5 mcg Capsule] 1 tab PO DAILY #30 capsule 12/23/15 Cholecalciferol (Vitamin D3) [Vitamin D3] 50,000 unit PO ASDIR PRN #4 capsule Cholecalciferol (Vitamin D3) [Vitamin D3] 50,000 unit PO ASDIR PRN #4 capsule Cholestyramine/Aspartame [Questran Light 4 gm Packet] 4 gm PO MEALSHS #120 packet 12/23/15 Cholestyramine/Aspartame [Questran Light 4 gm Packet] 4 gm PO MEALSHS #120 packet 12/23/15 Clonidine HCl [Catapres 0.1 mg Tablet] 0.1 mg PO Q8 #90 tablet 12/23/15 Clonidine HCl [Catapres 0.1 mg Tablet] 0.1 mg PO Q8 #90 tablet 12/23/15 Hydrocortisone 20 mg PO BID #60 tablet 12/23/15 Hydrocortisone 20 mg PO BID #60 tablet 12/23/15 Levothyroxine Sodium [Synthroid 0.1 mg Tablet] 0.1 mg PO DAILY@0600 #30 tablet 12/23/15 Levothyroxine Sodium [Synthroid 0.1 mg Tablet] 0.1 mg PO DAILY@0600 #30 tablet 12/23/15 Oxycodone HCl [Oxy-Ir 5 mg Tablet] 15 mg PO Q6HP PRN #30 tablet 12/23/15 Pantoprazole Sodium [Protonix] 1 tab PO DAILY #60 tablet. 12/23/15 Pantoprazole Sodium [Protonix] 1 tab PO DAILY #60 tablet. 12/23/15 Potassium 595 mg PO BID #60 tablet 12/23/15 Promethazine HCl [Phenergan 25 mg Tablet] 25 mg PO Q6HP PRN #30 tablet 12/23/15 Promethazine HCl [Phenergan 25 mg Tablet] 25 mg PO Q6HP PRN #30 tablet 12/23/15 Tizanidine HCl [Zanaflex 4 mg Tablet] 4 mg PO Q8 #30 tablet 12/23/15 Zolpidem Tartrate [Ambien 5 mg Tablet] 10 mg PO HSP PRN tablet 12/23/15 Promethazine HCl [Phenergan 25 mg Tablet] 1 - 2 tab PO Q6H PRN #20 tablet Sucralfate [Carafate 1 gm Tablet] 1 gm PO QID #40 tablet 06/01/16 Sulfamethoxazole/Trimethoprim [Bactrim Ds Tablet] 1 each PO BID #10 tablet 06/01 Cephalexin Monohydrate [Keflex 500 mg Capsule] 500 mg PO QID #20 capsule Levothyroxine Sodium [Levo-T] 200 mcg PO DAILY #30 tablet 02/20/17 Hydrocortisone 20 mg PO BID #60 tablet 05/01/17 Allergies/Adverse Reactions: amoxicillin [Amoxicillin] Allergy (Verified 03/16/18 04:14) ciprofloxacin [From Cipro] Allergy (Verified 03/16/18 04:14) tramadol [Tramadol] Allergy (Verified 03/16/18 04:14) cillin Allergy (Uncoded 05/01/17 13:48) Review of Systems Constitutional: PRESENT: as per HPI, anorexia, chills, fatigue. ABSENT: fever(s ) Eyes: ABSENT: visual disturbances Ears: PRESENT: as per HPI Nose, Mouth, and Throat: PRESENT: as per HPI Cardiovascular: ABSENT: chest pain, dyspnea on exertion, edema, orthropnea, palpitations Respiratory: ABSENT: cough, hemoptysis Gastrointestinal: PRESENT: as per HPI, abdominal pain, constipation. ABSENT: bloating, coffee ground emesis Genitourinary: ABSENT: dysuria, hematuria Musculoskeletal: PRESENT: as per HPI, back pain Integumentary: ABSENT: rash, wounds Neurological: ABSENT: abnormal gait, abnormal speech, confusion, dizziness, focal weakness, syncope Psychiatric: ABSENT: anxiety, depression, homidical ideation, suicidal ideation Endocrine: ABSENT: cold intolerance, heat intolerance, polydipsia, polyuria Hematologic/Lymphatic: ABSENT: easy bleeding, easy bruising Physical Exam Vital Signs: Temp Pulse Resp BP Pulse Ox 97.5 F 15 99/76 L 96 03/16/18 03:50 03/16/18 06:16 03/16/18 06:16 03/16/18 06:16 General appearance: PRESENT: cooperative, mild distress, obese. ABSENT: hard of hearing Head exam: PRESENT: atraumatic, normocephalic Eye exam: PRESENT: conjunctiva pink, EOMI, PERRLA. ABSENT: scleral icterus Ear exam: PRESENT: normal external ear exam Mouth exam: PRESENT: moist, tongue midline Neck exam: ABSENT: carotid bruit, JVD, lymphadenopathy, thyromegaly Respiratory exam: PRESENT: clear to auscultation jluis. ABSENT: rales, rhonchi, wheezes Cardiovascular exam: PRESENT: RRR. ABSENT: diastolic murmur, rubs, systolic murmur Pulses: PRESENT: normal dorsalis pedis pul Vascular exam: PRESENT: normal capillary refill GI/Abdominal exam: PRESENT: normal bowel sounds, soft. ABSENT: distended, guarding, mass, organolmegaly, rebound, tenderness Rectal exam: PRESENT: deferred Extremities exam: PRESENT: full ROM. ABSENT: calf tenderness, clubbing, pedal edema Neurological exam: PRESENT: alert, awake, oriented to person, oriented to place , oriented to time, oriented to situation, CN II-XII grossly intact. ABSENT: motor sensory deficit Psychiatric exam: PRESENT: anxious, unusual affect. ABSENT: homicidal ideation , suicidal ideation Skin exam: PRESENT: dry, intact, warm. ABSENT: cyanosis, rash Assessment & Plan - Diagnosis (1) Hypothyroidism Qualifiers: Hypothyroidism type: postoperative Qualified Code(s): E89.0 - Postprocedural hypothyroidism Is this a current diagnosis for this admission?: Yes Plan: Empiric Solu-Cortef prior to Synthroid replacement. Endocrinology consult (2) Weakness Is this a current diagnosis for this admission?: Yes Plan: Secondary to #1, (3) Nausea and vomiting Qualifiers: Vomiting type: unspecified Vomiting Intractability: unspecified Qualified Code(s): R11.2 - Nausea with vomiting, unspecified Is this a current diagnosis for this admission?: Yes Plan: Likely secondary to adrenal insufficiency versus opiate withdrawal. Consider pain management consult (4) Hypotension Is this a current diagnosis for this admission?: Yes Plan: Likely secondary to adrenal insufficiency versus hypothyroidism. IV fluid challenge, follow-up blood pressure, random cortisol - Time Time Spent: 50 to 70 Minutes - Inpatient Certification Medical Necessity: Need Close Monitoring Due to Risk of Patient Decompensation
[2018-03-16] MEDS: LEVOTHYROXINE SODIUM 0.05 MG TABLET PO SCH (07:02)
[2018-03-16] MEDS: NORMAL SALINE 1000 ML 1,000 ML IV SCH ×2 (07:03→10:55)
--- NOTE | 2018-03-16 07:50 | EKG REPORT ---
SEVERITY:- ABNORMAL ECG - NORMAL SINUS RHYTHM NONSPECIFIC T ABNORMALITIES, ANT-LAT LEADS : Confirmed by: Ken Rico MD 16-Mar-2018 07:49:48
[2018-03-16 08:08] LABS: APPEARANCE,URINE CLEAR; BILIRUBIN,URINE NEGATIVE (NEGATIVE); COLOR,URINE YELLOW; GLUCOSE, URINE NEGATIVE (NEGATIVE); KETONES,URINE NEGATIVE (NEGATIVE); LEUKOCYTE ESTERASE,URINE TRACE (NEGATIVE); NITRITE,URINE NEGATIVE (NEGATIVE); PROTEIN,URINE NEGATIVE (NEGATIVE); URINE SPECIFIC GRAVITY 1.006; UROBILINOGEN,URINE NEGATIVE mg/dL (<2.0)
[2018-03-16] MEDS: HYDROCORTISONE 10 MG TABLET PO SCH ×2 (10:54→17:31)
[2018-03-16] MEDS: DOCUSATE SODIUM 100 MG CAPSULE PO SCH ×2 (10:55→17:32)
[2018-03-16] MEDS ORDERED: FAMOTIDINE 20 MG TABLET PEG SCH (12:00)
[2018-03-16] MEDS: OXYCODONE HCL IR 5 MG TABLET PO PRN ×2 (12:05→23:12)
[2018-03-16] MEDS: FENTANYL 25 MCG/HR PATCH.TD72 TD SCH (12:05)
[2018-03-16] MEDS ORDERED: ONDANSETRON 4 MG TAB.RAPDIS PO PRN (13:05)
[2018-03-16] MEDS: HEPARIN SOD (PORCINE) 5,000 UNIT/ML 1 ML SYRINGE SUBCUT SCH ×2 (13:39→21:28)
[2018-03-16] MEDS ORDERED: (PENDING PHARMACY ID) (Zolpidem Tartrate [Ambien] 10 MG) PO PRN (16:00)
--- NOTE | 2018-03-16 16:54 | Progress Note ---
Provider Note Provider Note: with a past medical history of anxiety, chronic pain, pituitary adenoma, Bird 's disease, hypothyroidism and poor compliance. She presents with several weeks history of nausea and profound weakness. Patient has panhypopituitarism. Patient supposed to take replacement hormones for the last several run short of medications. Accept the patient and I will be her primary attending.
[2018-03-16] MEDS: TIZANIDINE HCL 4 MG TABLET PO SCH (17:31)
[2018-03-16] MEDS ORDERED: (PENDING PHARMACY ID) (Tizanidine Hcl [Zanaflex] 6 MG) PO SCH (18:00)
[2018-03-17 05:05] LABS: ABSOLUTE LYMPHOCYTES (AUTO) 1.9 10^3/uL (0.5-4.7); ABSOLUTE MONOCYTES (AUTO) 0.3 10^3/uL (0.1-1.4); ABSOLUTE NEUT (AUTO) 3.3 10^3/uL (1.7-8.2); BASOPHILS % (AUTO) 0.2 % (0-2); HEMATOCRIT 33.2 % (36.0-47.0); HEMOGLOBIN 11.6 g/dL (12.0-15.5); LYMPHOCYTES % (AUTO) 34.9 % (13-45); MEAN CORPUSCULAR HEMOGLOBIN 31.5 pg (27.0-33.4); MEAN CORPUSCULAR HGB CONC 34.8 g/dL (32.0-36.0); MEAN CORPUSCULAR VOLUME 91 fl (80-97); MONOCYTES % (AUTO) 4.7 % (3-13); PLATELET COUNT 233 10^3/uL (150-450); RED BLOOD COUNT 3.67 10^6/uL (3.72-5.28); RED CELL DISTRIBUTION WIDTH 16.5 % (11.5-14.0); SEGMENTED NEUTROPHILS % (AUTO) 60.2 % (42-78); TOTAL CELLS COUNTED % (AUTO) 100 %; WHITE BLOOD COUNT 5.5 10^3/uL (4.0-10.5)
[2018-03-17 05:44] LABS: ANION GAP 15 (5-19); BLOOD UREA NITROGEN 9 mg/dL (7-20); CALCIUM 9.1 mg/dL (8.4-10.2); CARBON DIOXIDE 23 mmol/L (22-30); CHLORIDE 106 mmol/L (98-107); GLUCOSE 112 mg/dL (75-110); POTASSIUM 4.3 mmol/L (3.6-5.0); SODIUM 143.5 mmol/L (137-145)
[2018-03-17] MEDS: LEVOTHYROXINE SODIUM 0.05 MG TABLET PO SCH (05:47)
[2018-03-17] MEDS: HEPARIN SOD (PORCINE) 5,000 UNIT/ML 1 ML SYRINGE SUBCUT SCH ×3 (05:47→21:47)
[2018-03-17] MEDS: TIZANIDINE HCL 4 MG TABLET PO SCH ×3 (09:15→17:59)
[2018-03-17] MEDS: DOCUSATE SODIUM 100 MG CAPSULE PO SCH ×2 (09:16→17:59)
[2018-03-17] MEDS: HYDROCORTISONE 10 MG TABLET PO SCH ×2 (09:16→17:59)
--- NOTE | 2018-03-17 09:52 | Physician Advisory Note ---
Physician Advisor ProgressNote .: Pursuant to the plan for Ryan Rader, I have reviewed the medical record for this patient. Physician Advisor Statement: Please consider documenting, if you agree: 1. "Acute Kidney Injury, baseline Cr = ____" - (Cr ranged 0.73 - 0.86 in 2017 per [facility] labs) 2. "Acute hypernatremia, mild, likely due to " 3. "Chronic opioid dependence" ? - Reconciled home meds list includes Duragesic patch... Status: Medicaid pt with adrenal crisis/severe hypothyroidism due to nonadherence w/tx, with associated DIANNE/hypernatremia. Appropriate tx instituted. - If not yet sufficiently improved today for safe d/c, please document this and may change to Inpatient status. Thanks! CK
--- NOTE | 2018-03-17 11:41 | PDOC PROGRESS REPORT ---
Subjective Subjective:: This is 37 years old female patient presented with chief complaints of nausea vomiting and generalized body weakness of several weeks duration. At presentation patient's found to be hypotensive and she was bolused with normal saline. Of note patient has pituitary adenoma, B12 deficiency, hypothyroidism, and adrenals insufficiency. her TSH is greater than 100 and her B12 less than 199. She claims she feels a little better but still she is weak and she is not ready to go home today. Reason For Visit: ADRENAL CRISIS, HYPOTHYROID Physical Exam Vital Signs: Temp Pulse Resp BP Pulse Ox 97.7 F 62 18 99/53 L 99 03/17/18 08:00 03/17/18 08:00 03/17/18 08:00 03/17/18 08:00 03/17/18 08:00 Intake & Output 03/16/18 03/17/18 03/18/18 06:59 06:59 06:59 Intake Total 2243 Balance 2243 Weight 91.7 kg General appearance: PRESENT: no acute distress Head exam: PRESENT: atraumatic Mouth exam: PRESENT: moist Respiratory exam: PRESENT: clear to auscultation jluis. ABSENT: rales, rhonchi, wheezes Cardiovascular exam: PRESENT: RRR. ABSENT: diastolic murmur, rubs, systolic murmur Neurological exam: PRESENT: alert, awake Psychiatric exam: PRESENT: depressed Results Laboratory Results: 03/17/18 04:26 03/17/18 04:26 03/17/18 03/17/18 04:26 04:26 WBC 5.5 RBC 3.67 L Hgb 11.6 L Hct 33.2 L MCV 91 MCH 31.5 MCHC 34.8 RDW 16.5 H Plt Count 233 Seg Neutrophils % 60.2 Lymphocytes % 34.9 Monocytes % 4.7 Eosinophils % 0.0 Basophils % 0.2 Absolute Neutrophils 3.3 Absolute Lymphocytes 1.9 Absolute Monocytes 0.3 Absolute Eosinophils 0.0 Absolute Basophils 0.0 Sodium 143.5 Potassium 4.3 Chloride 106 Carbon Dioxide 23 Anion Gap 15 BUN 9 Creatinine 1.09 Est GFR ( Amer) > 60 Est GFR (Non-Af Amer) 56 L Glucose 112 H Calcium 9.1 Assessment & Plan - Diagnosis (1) Adrenal crisis Is this a current diagnosis for this admission?: Yes Plan: Patient has been aggressively hydrated given IV Solu-Cortef. Her blood pressure is still on the lower side. Continue Solu-Cortef 20 mg twice daily. (2) Hypothyroidism Qualifiers: Hypothyroidism type: postoperative Qualified Code(s): E89.0 - Postprocedural hypothyroidism Is this a current diagnosis for this admission?: Yes Plan: Uncontrolled with TSH of 100. Patient started on Synthroid 300 mcg 8 (3) B12 deficiency Is this a current diagnosis for this admission?: Yes Plan: Patient started on cyanocobalamin 1000 mcg daily. (4) Chronic pain syndrome Is this a current diagnosis for this admission?: Yes Plan: Patient has been on fentanyl patch.
[2018-03-17] MEDS: OXYCODONE HCL IR 5 MG TABLET PO PRN ×2 (12:26→21:48)
--- NOTE | 2018-03-17 20:24 | EKG REPORT ---
SEVERITY:- DEFECTIVE ECG - NONSPECIFIC T ABNORMALITIES, DIFFUSE LEADS PROBABLE SINUS RHYUTHM WITH ARTIFACT.REPEAT EKG WITH 'MEGAN LEADS.' : Confirmed by: Imani Funez MD 17-Mar-2018 20:23:54
--- NOTE | 2018-03-17 22:44 | EKG REPORT ---
SEVERITY:- ABNORMAL ECG - ACCELERATED JUNCTIONAL ESCAPE RHYTHM NONSPECIFIC T ABNORMALITIES, INFERIOR LEADS : Confirmed by: Imani Funez MD 17-Mar-2018 22:43:25
[2018-03-18] MEDS: ZOLPIDEM TARTRATE 5 MG TABLET PO PRN ×2 (03:30→23:27)
[2018-03-18] MEDS ORDERED: METOPROLOL TARTRATE PF/INJ 5 MG/5 ML SDV IV ONE (03:45)
[2018-03-18] MEDS: LEVOTHYROXINE SODIUM 0.15 MG TABLET PO SCH (05:44)
[2018-03-18] MEDS: HEPARIN SOD (PORCINE) 5,000 UNIT/ML 1 ML SYRINGE SUBCUT SCH ×3 (05:44→22:09)
[2018-03-18] MEDS ORDERED: METOPROLOL SUCCINATE 50 MG TAB.SR.24H PO SCH (10:00)
--- NOTE | 2018-03-18 10:03 | EKG REPORT ---
SEVERITY:- ABNORMAL ECG - BORDERLINE T ABNORMALITIES, INFERIOR LEADS SINUS VERSUS ECTOPIC ATRIAL RHYTHM LOW VOLTAGE LIMB LEADS : Confirmed by: Imani Funez MD 18-Mar-2018 10:02:50
[2018-03-18] MEDS: TIZANIDINE HCL 4 MG TABLET PO SCH ×3 (10:29→17:41)
[2018-03-18] MEDS: CHOLECALCIFEROL (D3) 1,000 UNIT TABLET PO SCH (10:29)
[2018-03-18] MEDS: HYDROCORTISONE 10 MG TABLET PO SCH ×2 (10:29→17:41)
[2018-03-18] MEDS: CYANOCOBALAMIN (VITAMIN B-12) INJ 1000 MCG/1 ML VIAL IM SCH (10:30)
[2018-03-18] MEDS: DOCUSATE SODIUM 100 MG CAPSULE PO SCH ×2 (10:34→17:43)
[2018-03-18] MEDS: OXYCODONE HCL IR 5 MG TABLET PO PRN ×2 (11:36→20:51)
[2018-03-18] MEDS: SODIUM CHLORIDE NASAL SPRAY 44 ML NAREB SCH ×3 (14:17→22:13)
--- NOTE | 2018-03-18 16:44 | PDOC PROGRESS REPORT ---
Subjective Progress Note for:: 03/18/18 Subjective:: The patient appears quite drowsy. She does however continue to have multiple complaints of pain as well as a sense of fullness in her right ear that is chronic. Reason For Visit: ADRENAL CRISIS, HYPOTENSION,HYPOTHYROID Physical Exam Vital Signs: Temp Pulse Resp BP Pulse Ox 98.4 F 76 18 103/62 96 03/18/18 16:03 03/18/18 16:03 03/18/18 16:03 03/18/18 16:03 03/18/18 16:03 Intake & Output 03/17/18 03/18/18 03/19/18 06:59 06:59 06:59 Intake Total 333 Balance 333 Weight 93.7 kg General appearance: PRESENT: no acute distress, morbidly obese, well-developed, other - The patient appears obtunded with slurred speech and drooping eyelids. Head exam: PRESENT: atraumatic, normocephalic Eye exam: PRESENT: conjunctiva pink, EOMI, PERRLA. ABSENT: scleral icterus Ear exam: PRESENT: normal external ear exam Neck exam: ABSENT: carotid bruit, JVD, lymphadenopathy, thyromegaly Respiratory exam: PRESENT: other - No increased work of breathing. No wheezes, rales, or rhonchi. No tactile fremitus.. ABSENT: rales, rhonchi, wheezes Cardiovascular exam: PRESENT: RRR, other - No lateral PMI. No thrills.. ABSENT : diastolic murmur, rubs, systolic murmur Pulses: PRESENT: normal femoral pulses, normal dorsalis pedis pul Vascular exam: PRESENT: normal capillary refill GI/Abdominal exam: PRESENT: soft, other - The abdomen is morbidly obese. I am unable to evaluate the abdomen for organomegaly, masses, or hernias. Bowel sounds are distant.. ABSENT: distended, guarding, rebound, tenderness Rectal exam: PRESENT: deferred Extremities exam: PRESENT: full ROM, other - Brawny edema bilaterally.. ABSENT : calf tenderness, clubbing, pedal edema Neurological exam: PRESENT: alert, awake, oriented to person, oriented to place , oriented to time, oriented to situation, CN II-XII grossly intact. ABSENT: motor sensory deficit Psychiatric exam: PRESENT: appropriate affect, flat affect. ABSENT: homicidal ideation, suicidal ideation Skin exam: PRESENT: dry, intact, warm. ABSENT: cyanosis, rash Assessment & Plan - Diagnosis (1) Eustachian tube disorder Is this a current diagnosis for this admission?: Yes Plan: Nasal saline (2) Adrenal crisis Is this a current diagnosis for this admission?: Yes Plan: IV steroids (3) B12 deficiency Is this a current diagnosis for this admission?: Yes Plan: Supplemental B 12 (4) Chronic pain syndrome Is this a current diagnosis for this admission?: Yes Plan: Continue home medications (5) Hypotension Qualifiers: Hypotension type: other hypotension type Qualified Code(s): I95.89 - Other hypotension Is this a current diagnosis for this admission?: Yes Plan: Continue steroids. Monitor blood pressure. Patient is not symptomatic. (6) Hypothyroidism Qualifiers: Hypothyroidism type: postoperative Qualified Code(s): E89.0 - Postprocedural hypothyroidism Is this a current diagnosis for this admission?: Yes Plan: Supplemental levothyroxine. Follow up with endocrinology as outpatient. (7) Weakness Is this a current diagnosis for this admission?: Yes Plan: PT/OT eval and treat. - Time Time Spent with patient: 25-34 minutes Medications reviewed and adjusted accordingly: Yes Anticipated discharge: Home Within: within 48 hours
[2018-03-19] MEDS: SODIUM CHLORIDE NASAL SPRAY 44 ML NAREB SCH ×3 (02:34→09:29)
[2018-03-19] MEDS: LEVOTHYROXINE SODIUM 0.15 MG TABLET PO SCH (05:40)
[2018-03-19] MEDS: HEPARIN SOD (PORCINE) 5,000 UNIT/ML 1 ML SYRINGE SUBCUT SCH (05:41)
[2018-03-19] MEDS: TIZANIDINE HCL 4 MG TABLET PO SCH (09:21)
[2018-03-19] MEDS: HYDROCORTISONE 10 MG TABLET PO SCH (09:23)
[2018-03-19] MEDS: CHOLECALCIFEROL (D3) 1,000 UNIT TABLET PO SCH (09:23)
[2018-03-19] MEDS: CYANOCOBALAMIN (VITAMIN B-12) INJ 1000 MCG/1 ML VIAL IM SCH (09:24)
[2018-03-19] MEDS: DOCUSATE SODIUM 100 MG CAPSULE PO SCH (09:29)
[2018-03-19] MEDS: OXYCODONE HCL IR 5 MG TABLET PO PRN (11:13)
[2018-03-19] MEDS: FENTANYL 25 MCG/HR PATCH.TD72 TD SCH (12:48)
[2018-03-19 14:06] VITALS: BP 120/79
--- NOTE | 2018-03-19 17:33 | PDOC DISCHARGE SUMMARY ---
General - Admit/Disc Date/PCP Admission Date/Primary Care Provider: 03/17/18 11:19 CITLALI FUENTES Discharge Date: 03/19/18 - Discharge Diagnosis (1) Adrenal crisis Is this a current diagnosis for this admission?: Yes (2) Hypothyroidism Is this a current diagnosis for this admission?: Yes (3) Hypotension Is this a current diagnosis for this admission?: Yes (4) Weakness Is this a current diagnosis for this admission?: Yes (5) B12 deficiency Is this a current diagnosis for this admission?: Yes (6) Chronic pain syndrome Is this a current diagnosis for this admission?: Yes (7) Eustachian tube disorder Is this a current diagnosis for this admission?: Yes (8) Medical non-compliance Is this a current diagnosis for this admission?: Yes Summary: Patient's failure to continue her medications for her adrenal insufficiency and hypothyroidism resulted in adrenal crisis and severe hypothyroidism. She has been cautioned that she must follow up with an caption writer, and she must continue her medications. She will have home health for vitals and medication checks. - Additional Information Resuscitation Status: Full Code Discharge Diet: As Tolerated Discharge Activity: Activity As Tolerated, No Driving, Other Prescriptions: Cholecalciferol (Vitamin D3) [Vitamin D3 1000 Unit Tablet] 2,000 unit PO DAILY # 60 tablet Cyanocobalamin (Vitamin B-12) [Vitamin B12] 2,500 mcg PO DAILY #30 tablet Hydrocortisone [Cortef 10 mg Tablet] 10 mg PO TID 30 Days #90 tablet Levothyroxine Sodium [Synthroid 0.15 mg Tablet] 0.3 mg PO Q6AM #60 tablet Sodium Chloride [[place] Nasal [place] 44 ml Bottle] 1 spray NAREB Q4 #1 bottle Home Medications: Fentanyl [Duragesic 25 mcg/hr Transdermal Patch] 1 patch TD Q48H 03/16/18 Ondansetron [Zofran Odt] 8 mg SL Q8HP PRN 03/16/18 Tapentadol HCl [Nucynta] 50 mg PO Q8HP PRN 03/16/18 Tizanidine HCl [Zanaflex] 6 mg PO TID 03/16/18 Cholecalciferol (Vitamin D3) [Vitamin D3 1000 Unit Tablet] 2,000 unit PO DAILY # 60 tablet 03/19/18 Cyanocobalamin (Vitamin B-12) [Vitamin B12] 2,500 mcg PO DAILY #30 tablet Hydrocortisone [Cortef 10 mg Tablet] 10 mg PO TID 30 Days #90 tablet 03/19/18 Levothyroxine Sodium [Synthroid 0.15 mg Tablet] 0.3 mg PO Q6AM #60 tablet Sodium Chloride [[place] Nasal Car[place] 44 ml Bottle] 1 spray NAREB Q4 #1 bottle 07/27 History of Present Illness History of Present Illness: RODGER MONTANEZ is a 37 year old female Hospital Course Hospital Course: The patient was admitted and received IV supplementation of steroid and levothyroxine. This was converted to PO. She als was found to have a B12 deficiency and this was supplemented. She was evaluated by PT/OT. She will also have home health PT/OT. She requested a replacement wheelchair as hers (shich she obtained in 2012) is "falling apart". She also had some complaints of chronic fullness of her right ear. She was given nasal saline to relieve her chronic eustacian tube disfunction. The patient also has chronic anxiety and depression which verges on agoraphobia. She reportedly has been told by her PCP that she must see a psychiatrist. Thus far the patient has refused to do so. She now must also follow up with an caption writer. She states that there is no way that she can physically get to an caption writer. She will be supplied with a month of hormonal supplementation in the form of steroid and levothyroxine by me. She therefore has 30 days to arrange a visit and transporation or to arrange for her PCP to continue these medications. On 2017 the patient had complaints of feeling out of it and waking up not realizing that she had fallen asleep. She complained of having "lost time". During my exam yesterday the patient was obtunded and had slurred speech. She appeared very groggy. I believe that this was due to the patient's having been started on percocet for her chronic pain. This has been stopped. Her mentation is much clearer today. Physical Exam Vital Signs: Temp Pulse Resp BP Pulse Ox 98.5 F 87 16 120/79 100 03/19/18 14:27 03/19/18 14:27 03/19/18 14:27 03/19/18 14:27 03/19/18 14:27 Intake & Output 03/18/18 03/19/18 03/20/18 06:59 06:59 06:59 Intake Total 333 13 Balance 333 13 Weight 93.7 kg 94.6 kg General appearance: PRESENT: no acute distress, cooperative, morbidly obese Respiratory exam: PRESENT: other - No increased work of breathing. No wheezes, rales, or rhonchi. No tactile fremitus. Cardiovascular exam: PRESENT: other - RRR without murmur, ectopy, or gallups. No lateral PMI. No thrills. Pulses: PRESENT: normal carotid pulses, normal femoral pulses, normal dorsalis pedis pul GI/Abdominal exam: PRESENT: other - The abdomen is morbidly obese. I am unable to evaluate the abdomen for hernias, masses, or organomegaly. Bowel sounds are distant. The abdomen is soft and non-tender. Extremities exam: PRESENT: full ROM, pedal edema. ABSENT: clubbing, tenderness Musculoskeletal exam: PRESENT: ambulatory, full ROM. ABSENT: deformity, dislocation, tenderness Neurological exam: PRESENT: alert, awake, oriented to person, oriented to place , oriented to time, oriented to situation, CN II-XII grossly intact. ABSENT: motor sensory deficit Psychiatric exam: PRESENT: anxious, flat affect Skin exam: PRESENT: dry, intact, warm Qualifiers - * PATIENT BEING DISCHARGED WITH ANY OF THE FOLLOWING DIAGNOSIS: No VTE patient discharged on overlapping Therapy?: Yes
== END 2018-03-19 15:01 | disposition home health service (06) | DRG 645 ==
LOC: ER 03:44 → EH 06:17 → 3N 07:57 → OBSVTOIN 03-17 11:19
PROVIDERS: ADMIT Internal Medicine; ATTEND Internal Medicine
DX: E27.2 Addisonian crisis (principal); E89.0 Postprocedural hypothyroidism; T38.1X6A Underdosing of thyroid hormones and substitutes, initial encounter; G89.4 Chronic pain syndrome; I95.9 Hypotension, unspecified; H69.91 Unspecified Eustachian tube disorder, right ear; I95.89 Other hypotension; F31.9 Bipolar disorder, unspecified; R68.0 Hypothermia, not associated with low environmental temperature; E78.5 Hyperlipidemia, unspecified; F41.1 Generalized anxiety disorder; I10 Essential (primary) hypertension; Z91.19 Patient's noncompliance with other medical treatment and regimen; M79.7 Fibromyalgia; E66.9 Obesity, unspecified; E53.8 Deficiency of other specified B group vitamins; Z68.34 Body mass index [BMI] 34.0-34.9, adult; Z88.1 Allergy status to other antibiotic agents; Z88.0 Allergy status to penicillin; Z88.8 Allergy status to other drugs, medicaments and biological substances; Z90.49 Acquired absence of other specified parts of digestive tract; Z90.710 Acquired absence of both cervix and uterus; Z82.49 Family history of ischemic heart disease and other diseases of the circulatory system; Z79.899 Other long term (current) drug therapy; R41.82 Altered mental status, unspecified; T40.2X5A Adverse effect of other opioids, initial encounter; Y92.239 Unspecified place in hospital as the place of occurrence of the external cause
CPT/HCPCS: 36415; 80048; 80053; 81001; 82533; 82607; 82746; 83735; 84439; 84443; 84481; 85025; 86850; 86900; 86901; 93005; 93010; 96361; 96374; 96375; 99285; G0378; J1644; J1720; J3420; J3490; J7030; S0119

== ENCOUNTER 2018-03-21 16:12 | Observation (INO) | payer MEDICAID ==
[2018-03-21] MEDS ORDERED: PROCHLORPERAZINE EDISYLATE INJ 10 MG/2 ML VIAL IM ONE (16:29)
--- NOTE | 2018-03-21 16:31 | ER Document Report ---
ED Medical Screen (RME) - General Chief Complaint: Abdominal Pain Stated Complaint: ABDOMINAL PAIN Time Seen by Provider: 03/21/18 16:28 Mode of Arrival: Wheelchair Information source: Patient TRAVEL OUTSIDE OF THE [place] IN LAST 30 DAYS: No - HPI Patient complains to provider of: abd pain Onset: Just prior to arrival - pt. states she ate at [employer] earlier this afternoon and then developed abd pain and nausea. - Related Data Allergies/Adverse Reactions: amoxicillin [Amoxicillin] Allergy (Verified 03/21/18 16:13) ciprofloxacin [From Cipro] Allergy (Verified 03/21/18 16:13) tramadol [Tramadol] Allergy (Verified 03/21/18 16:13) cillin Allergy (Uncoded 03/21/18 16:13) Past Medical History - Social History Chew tobacco use (# tins/day): No Frequency of alcohol use: None Drug Abuse: None - Past Medical History Cardiac Medical History: Reports: Hx Hypercholesterolemia, Hx Hypertension Endocrine Medical History: Reports: Hx Graves' Disease, Hx Hypothyroidism Renal/ Medical History: Denies: Hx Peritoneal Dialysis Musculoskeltal Medical History: Reports Hx Fibromyalgia Psychiatric Medical History: Reports: Hx Anxiety, Hx Depression Past Surgical History: Reports: Hx Appendectomy, Hx Section - x2, Hx Cholecystectomy, Hx Hysterectomy, Hx Thyroid Surgery - Immunizations Hx Diphtheria, Pertussis, Tetanus Vaccination: No History of Influenza Vaccine for 06/2017 - 11/2017 Season: No Physical Exam - Vital signs Vitals: Temp Pulse Resp BP Pulse Ox 97.5 F 65 20 148/98 H 100 03/21/18 16:21 03/21/18 16:21 03/21/18 16:21 03/21/18 16:21 03/21/18 16:21 Course - Vital Signs Vital signs: Temp Pulse Resp BP Pulse Ox 97.5 F 65 20 148/98 H 100 03/21/18 16:21 03/21/18 16:21 03/21/18 16:21 03/21/18 16:21 03/21/18 16:21 Doctor's Discharge - Discharge Referrals: HARLAN TOLENTINO FNP-C [Primary Care Provider] - Follow up as needed
[2018-03-21 16:57] LABS: ABSOLUTE BASOPHILS # (AUTO) 0.1 10^3/uL (0.0-0.2); ABSOLUTE LYMPHOCYTES (AUTO) 3.9 10^3/uL (0.5-4.7); ABSOLUTE MONOCYTES (AUTO) 0.7 10^3/uL (0.1-1.4); ABSOLUTE NEUT (AUTO) 5.8 10^3/uL (1.7-8.2); BASOPHILS % (AUTO) 0.6 % (0-2); HEMATOCRIT 38.7 % (36.0-47.0); HEMOGLOBIN 13.2 g/dL (12.0-15.5); LYMPHOCYTES % (AUTO) 37.5 % (13-45); MEAN CORPUSCULAR HEMOGLOBIN 31.3 pg (27.0-33.4); MEAN CORPUSCULAR HGB CONC 34.1 g/dL (32.0-36.0); MEAN CORPUSCULAR VOLUME 92 fl (80-97); MONOCYTES % (AUTO) 6.7 % (3-13); PLATELET COUNT 314 10^3/uL (150-450); RED BLOOD COUNT 4.22 10^6/uL (3.72-5.28); RED CELL DISTRIBUTION WIDTH 16.6 % (11.5-14.0); SEGMENTED NEUTROPHILS % (AUTO) 55.2 % (42-78); TOTAL CELLS COUNTED % (AUTO) 100 %; WHITE BLOOD COUNT 10.4 10^3/uL (4.0-10.5)
[2018-03-21] MEDS ORDERED: FAMOTIDINE INJ/PF 20 MG/2 ML SDV IV ONE (16:59)
[2018-03-21] MEDS ORDERED: NORMAL SALINE 1000 ML 1,000 ML IV ONE ×2 (16:59→19:24)
--- NOTE | 2018-03-21 17:07 | ER Document Report ---
ED General - General Chief Complaint: Abdominal Pain Stated Complaint: ABDOMINAL PAIN Time Seen by Provider: 03/21/18 16:28 Mode of Arrival: Wheelchair Information source: Patient Notes: 37-year-old female presents to the emergency department complaints of nausea, vomiting, diarrhea. Patient states that this started just prior to arrival. Patient states that she was eating at [employer] when this occurred. She denies a history of sick contacts. She is having some associated abdominal cramping. Patient denies any fever, chills, dysuria, hematuria, vaginal bleeding, vaginal discharge. Patient states that she has had multiple surgeries on her abdomen. She has had a cholecystectomy, appendectomy, hysterectomy. TRAVEL OUTSIDE OF THE [place] IN LAST 30 DAYS: No - HPI Onset: Just prior to arrival Onset/Duration: Sudden Quality of pain: Cramping Severity: Mild Pain Level: Denies Associated symptoms: Diarrhea, Nausea, Vomiting Exacerbated by: Denies Relieved by: Denies Similar symptoms previously: No Recently seen / treated by doctor: Yes - Related Data Allergies/Adverse Reactions: amoxicillin [Amoxicillin] Allergy (Verified 03/21/18 16:13) ciprofloxacin [From Cipro] Allergy (Verified 03/21/18 16:13) tramadol [Tramadol] Allergy (Verified 03/21/18 16:13) cillin Allergy (Uncoded 03/21/18 16:13) Past Medical History - General Information source: Patient - Social History Smoking Status: Never Smoker Chew tobacco use (# tins/day): No Frequency of alcohol use: None Drug Abuse: None Family History: Hypertension Patient has suicidal ideation: No Patient has homicidal ideation: No - Past Medical History Cardiac Medical History: Reports: Hx Hypercholesterolemia, Hx Hypertension Endocrine Medical History: Reports: Hx Graves' Disease, Hx Hypothyroidism Renal/ Medical History: Denies: Hx Peritoneal Dialysis Musculoskeletal Medical History: Reports Hx Fibromyalgia Psychiatric Medical History: Reports: Hx Anxiety, Hx Depression Past Surgical History: Reports: Hx Appendectomy, Hx Section - x2, Hx Cholecystectomy, Hx Hysterectomy, Hx Thyroid Surgery - Immunizations Hx Diphtheria, Pertussis, Tetanus Vaccination: No Review of Systems - Review of Systems Constitutional: No symptoms reported EENT: No symptoms reported Cardiovascular: No symptoms reported Respiratory: No symptoms reported Gastrointestinal: Abdominal pain, Diarrhea, Nausea, Vomiting Genitourinary: No symptoms reported Female Genitourinary: No symptoms reported Musculoskeletal: No symptoms reported Skin: No symptoms reported Hematologic/Lymphatic: No symptoms reported Neurological/Psychological: No symptoms reported -: Yes All other systems reviewed and negative Physical Exam - Vital signs Vitals: Temp Pulse Resp BP Pulse Ox 97.5 F 65 20 148/98 H 100 03/21/18 16:21 03/21/18 16:21 03/21/18 16:21 03/21/18 16:21 03/21/18 16:21 Interpretation: Normal - Notes Notes: PHYSICAL EXAMINATION: GENERAL: Well-appearing, well-nourished and in no acute distress. HEAD: Atraumatic, normocephalic. EYES: Pupils equal round and reactive to light, extraocular movements intact, conjunctiva are normal. ENT: Nares patent, oropharynx clear without exudates. Moist mucous membranes. NECK: Normal range of motion, supple without lymphadenopathy LUNGS: Breath sounds clear to auscultation bilaterally and equal. No wheezes rales or rhonchi. HEART: Regular rate and rhythm without murmurs ABDOMEN: Soft, diffuse abdominal tenderness to palpation. No guarding, no rebound. No masses appreciated. Female : deferred Musculoskeletal: Normal range of motion, no pitting or edema. No cyanosis. NEUROLOGICAL: Cranial nerves grossly intact. Normal speech, normal gait. Normal sensory, motor exams PSYCH: Normal mood, normal affect. SKIN: Warm, Dry, normal turgor, no rashes or lesions noted. Course - Re-evaluation Re-evalutation: 03/21/18 21:52 On re-evaluation, patient's vital signs are stable. Patient continues to have nausea and abdominal pain despite medications. She appears pale and dehydrated. I contacted Dr. Singh for admission. He's agreeable with admitting the patient to [facility]. Would like random cortisol level obtained. Will hold solu- cortef at this time. - Vital Signs Vital signs: Temp Pulse Resp BP Pulse Ox 97.5 F 65 12 136/84 H 97 03/21/18 16:21 03/21/18 16:21 03/21/18 21:41 03/21/18 21:41 03/21/18 21:41 - Laboratory Result Diagrams: 03/21/18 16:40 03/21/18 16:40 Laboratory results interpreted by me: 03/21/18 03/21/18 03/21/18 16:40 16:40 16:40 RDW 16.6 H Sodium 147.7 H Potassium 3.4 L Anion Gap 22 H Est GFR (Non-Af Amer) 55 L Glucose 145 H Total Protein 9.3 H Albumin 5.5 H TSH 198.00 H Urine Protein Urine Ketones 03/21/18 18:00 RDW Sodium Potassium Anion Gap Est GFR (Non-Af Amer) Glucose Total Protein Albumin TSH Urine Protein 30 H Urine Ketones 20 H Discharge - Discharge Clinical Impression: Nausea & vomiting Qualifiers: Vomiting type: unspecified Vomiting Intractability: intractable Qualified Code( s): R11.2 - Nausea with vomiting, unspecified Condition: Stable Disposition: ADMITTED OBSERVATION Admitting Provider: Hospitalist Unit Admitted: Telemetry Referrals: HARLAN TOLENTINO FNP-C [Primary Care Provider] - Follow up as needed
[2018-03-21] MEDS ORDERED: DICYCLOMINE HCL INJ 20 MG/2 ML AMPULE IM ONE (17:09)
[2018-03-21 17:10] LABS: ALANINE AMINOTRANSFERASE 39 U/L (9-52); ALBUMIN 5.5 g/dL (3.5-5.0); ALKALINE PHOSPHATASE 116 U/L (38-126); ASPARTATE AMINO TRANSFERASE 33 U/L (14-36); BILIRUBIN,DIRECT 0.3 mg/dL (0.0-0.4); BLOOD UREA NITROGEN 11 mg/dL (7-20); CALCIUM 10.1 mg/dL (8.4-10.2); GLUCOSE 145 mg/dL (75-110); LIPASE 146.9 U/L (23-300); POTASSIUM 3.4 mmol/L (3.6-5.0); TOTAL PROTEIN 9.3 g/dL (6.3-8.2)
[2018-03-21 17:15] LABS: CARBON DIOXIDE 25 mmol/L (22-30); CHLORIDE 101 mmol/L (98-107); SODIUM 147.7 mmol/L (137-145)
--- NOTE | 2018-03-21 17:15 | RADIOLOGY REPORT (SQ) ---
EXAM DESCRIPTION: ACUTE ABDOMEN SERIES COMPLETED DATE/TIME: 03/21/2018 4:59 pm REASON FOR STUDY: abd pain COMPARISON: 02/20/2017 NUMBER OF VIEWS: Three views. TECHNIQUE: Frontal chest, supine abdomen and upright/decubitus abdomen radiographic images acquired. LIMITATIONS: None. FINDINGS: CHEST: Lungs clear of infiltrates. FREE AIR: None. No abnormal gas collections. BOWEL GAS PATTERN: Nonobstructive pattern. No dilated loops or air fluid levels. CALCIFICATIONS: No suspicious calcifications. HARDWARE: None in the abdomen. SOFT TISSUES: No gross mass or suggestion of organomegaly. BONES: No acute fracture. No worrisome bone lesions. OTHER: No other significant finding. IMPRESSION: NO RADIOGRAPHIC EVIDENCE FOR ACUTE ABDOMINAL DISEASE. TECHNICAL DOCUMENTATION: JOB ID: [id number] [employer]- All Rights Reserved Reading location - IP/workstation name: [email or web address]
[2018-03-21 17:21] LABS: ANION GAP 22 (5-19)
[2018-03-21 18:13] LABS: AMORPHOUS SEDIMENT,URINE TRACE /HPF; APPEARANCE,URINE CLOUDY; BILIRUBIN,URINE NEGATIVE (NEGATIVE); COLOR,URINE YELLOW; GLUCOSE, URINE NEGATIVE (NEGATIVE); KETONES,URINE 20 mg/dL (NEGATIVE); LEUKOCYTE ESTERASE,URINE NEGATIVE (NEGATIVE); NITRITE,URINE NEGATIVE (NEGATIVE); PROTEIN,URINE 30 mg/dL (NEGATIVE); URINE SPECIFIC GRAVITY 1.012; UROBILINOGEN,URINE NEGATIVE mg/dL (<2.0)
[2018-03-21] MEDS ORDERED: PROMETHAZINE HCL INJ 25 MG/1 ML VIAL IV ONE (18:16)
[2018-03-21 18:23] LABS: URINE AMPHETAMINES SCREEN NEGATIVE; URINE BARBITURATES SCREEN NEGATIVE; URINE BENZODIAZEPINES SCREEN NEGATIVE; URINE COCAINE SCREEN NEGATIVE; URINE MARIJUANA (THC) SCREEN NEGATIVE; URINE METHADONE SCREEN NEGATIVE; URINE PHENCYCLIDINE SCREEN NEGATIVE
[2018-03-21 18:39] LABS: FREE T4 (FREE THYROXINE) 0.99 ng/dL (0.78-2.19)
[2018-03-21] MEDS ORDERED: METOCLOPRAMIDE HCL INJ/PF 10 MG/2 ML SDV IV ONE (19:24)
--- NOTE | 2018-03-21 21:27 | RADIOLOGY REPORT (SQ) ---
EXAM DESCRIPTION: CT ABD/PELVIS WITH IV ONLY COMPLETED DATE/TIME: 03/21/2018 9:03 pm REASON FOR STUDY: abdominal pain COMPARISON: 2016 TECHNIQUE: CT scan of the abdomen and pelvis performed using helical scanning technique with dynamic intravenous contrast injection. No oral contrast. Images reviewed with lung, soft tissue, and bone windows. Reconstructed coronal and sagittal MPR images reviewed. Delayed images for evaluation of the urinary system also acquired. All images stored on PACS. All CT scanners at this facility use dose modulation, iterative reconstruction, and/or weight based d osing when appropriate to reduce radiation dose to as low as reasonably achievable (ALARA). [facility]: Dose Right [facility]: CareDose [facility]: Dose Right [facility]: Teradose 4D [facility]: Joox CONTRAST TYPE AND DOSE: contrast/concentration: Isovue 370.00 mg/ml; Total Contrast Delivered: 96.0 ml; Total Saline Delivered: 32.0 ml RENAL FUNCTION: None required. The patient is less than 50 years old. RADIATION DOSE: CT Rad equipment meets quality standard of care and radiation dose reduction techniq ues were employed. CTDIvol: 14.4 - 18.6 mGy. DLP: 1938 mGy-cm.. LIMITATIONS: None. FINDINGS: LOWER CHEST: No significant findings. No nodules or infiltrates. LIVER: Normal size. No masses. No dilated ducts. SPLEEN: Normal size. No focal lesions. PANCREAS: No masses. No significant calcifications. No adjacent inflammation or peripancreatic fluid collections. Pancreatic duct not dilated. GALLBLADDER: Surgically absent. ADRENAL GLANDS: No significant masses or asymmetry. RIGHT KIDNEY AND URETER: No solid masses. No significant calcifications. No hydronephrosis or hyd roureter. LEFT KIDNEY AND URETER: No solid masses. No significant calcifications. No hydronephrosis or hydr oureter. AORTA AND VESSELS: No aneurysm. No dissection. Renal arteries, SMA, celiac without stenosis. RETROPERITONEUM: No retroperitoneal adenopathy, hemorrhage or masses. BOWEL AND PERITONEAL CAVITY: No masses or inflammatory changes. No free fluid or peritoneal masses. APPENDIX: Not visualized. PELVIS: No mass. No free fluid. Normal bladder. ABDOMINAL WALL: No masses. No hernias. BONES: No significant or acute findings. OTHER: No other significant finding. IMPRESSION: NO SIGNIFICANT OR ACUTE FINDING IN THE ABDOMEN OR PELVIS ON CT SCAN WITH IV CONTRAST. TECHNICAL DOCUMENTATION: JOB ID: [id number] Quality ID # [id number]: Final reports with documentation of one or more dose reduction techniques (e.g., Au tomated exposure control, adjustment of the mA and/or kV according to patient size, use of iterative reconstruction technique) 2010 [employer]- All Rights Reserved Reading location - IP/workstation name: [email or web address]
[2018-03-21] MEDS ORDERED: HALOPERIDOL LACTATE INJ 5 MG/1 ML VIAL IV ONE (21:55)
[2018-03-22] MEDS: HEPARIN SOD (PORCINE) 5,000 UNIT/ML 1 ML SYRINGE SUBCUT SCH ×3 (01:02→18:34)
[2018-03-22] MEDS: POTASSIUM CHLORIDE 10 MEQ CAPSULE.ER PO SCH ×3 (01:02→18:32)
[2018-03-22 05:15] LABS: ABSOLUTE LYMPHOCYTES (AUTO) 1.3 10^3/uL (0.5-4.7); ABSOLUTE MONOCYTES (AUTO) 0.4 10^3/uL (0.1-1.4); ABSOLUTE NEUT (AUTO) 7.1 10^3/uL (1.7-8.2); BASOPHILS % (AUTO) 0.2 % (0-2); HEMATOCRIT 38.9 % (36.0-47.0); HEMOGLOBIN 13.4 g/dL (12.0-15.5); LYMPHOCYTES % (AUTO) 14.7 % (13-45); MEAN CORPUSCULAR HEMOGLOBIN 31.6 pg (27.0-33.4); MEAN CORPUSCULAR HGB CONC 34.4 g/dL (32.0-36.0); MEAN CORPUSCULAR VOLUME 92 fl (80-97); PLATELET COUNT 302 10^3/uL (150-450); RED BLOOD COUNT 4.24 10^6/uL (3.72-5.28); RED CELL DISTRIBUTION WIDTH 16.5 % (11.5-14.0); SEGMENTED NEUTROPHILS % (AUTO) 80.1 % (42-78); TOTAL CELLS COUNTED % (AUTO) 100 %; WHITE BLOOD COUNT 8.9 10^3/uL (4.0-10.5)
[2018-03-22 05:35] LABS: ALANINE AMINOTRANSFERASE 37 U/L (9-52); ALBUMIN 5.3 g/dL (3.5-5.0); ALKALINE PHOSPHATASE 95 U/L (38-126); ASPARTATE AMINO TRANSFERASE 34 U/L (14-36); BILIRUBIN,DIRECT 0.4 mg/dL (0.0-0.4); BILIRUBIN,TOTAL 1.3 mg/dL (0.2-1.3); BLOOD UREA NITROGEN 7 mg/dL (7-20); CALCIUM 9.3 mg/dL (8.4-10.2); CARBON DIOXIDE 22 mmol/L (22-30); CHLORIDE 101 mmol/L (98-107); GLUCOSE 127 mg/dL (75-110); POTASSIUM 3.8 mmol/L (3.6-5.0); TOTAL PROTEIN 8.8 g/dL (6.3-8.2)
[2018-03-22 05:42] LABS: SODIUM 143.4 mmol/L (137-145)
[2018-03-22 05:47] LABS: ANION GAP 20 (5-19)
[2018-03-22] MEDS ORDERED: ACETAMINOPHEN 325 MG TABLET PO PRN (06:04)
--- NOTE | 2018-03-22 06:11 | PDOC H&P ---
History of Present Illness Admission Date/PCP: 03/21/18 21:57 ADY FUENTES-C Patient complains of: Nausea and vomiting History of Present Illness: RODGER MONTANEZ is a 37 year old female with a past medical history of anxiety, chronic pain, pituitary adenoma, Dekalb's disease, hypothyroidism and poor compliance. Discharge 48 hours ago following noncompliance resulting in adrenal insufficiency and hypothyroidism. She returns with 6 hours of nausea with vomiting of gastric content. She consumed a suspect meal in which both her boyfriend and herself were nauseated and vomited. He is recovered but she has had persistent nonbloody vomiting. In the emergency room she has had symptomatic management, an unremarkable CT abdomen pelvis and referred to the hospitalist for admission. Past Medical History Cardiac Medical History: Reports: Hyperlipidema, Hypertension Endocrine Medical History: Reports: Hypothyroidism Musculoskeltal Medical History: Reports: Fibromyalgia Psychiatric Medical History: Reports: Depression Past Surgical History Past Surgical History: Reports: Appendectomy, Section - x2, Cholecystectomy, Hysterectomy Social History Information Source: Patient Lives with: Spouse/Significant other Smoking Status: Never Smoker Frequency of Alcohol Use: None Hx Recreational Drug Use: No Drugs: None Hx Prescription Drug Abuse: No - Advance Directive Resuscitation Status: Full Code Family History Family History: Hypertension Parental Family History Reviewed: Yes Children Family History Reviewed: Yes Sibling(s) Family History Reviewed.: Yes Medication/Allergy Home Medications: Fentanyl [Duragesic 25 mcg/hr Transdermal Patch] 1 patch TD Q48H 03/16/18 Ondansetron [Zofran Odt] 8 mg SL Q8HP PRN 03/16/18 Tapentadol HCl [Nucynta] 50 mg PO Q8HP PRN 03/16/18 Tizanidine HCl [Zanaflex] 6 mg PO TID 03/16/18 Cholecalciferol (Vitamin D3) [Vitamin D3 1000 Unit Tablet] 2,000 unit PO DAILY # 60 tablet 03/19/18 Cyanocobalamin (Vitamin B-12) [Vitamin B12] 2,500 mcg PO DAILY #30 tablet Hydrocortisone [Cortef 10 mg Tablet] 10 mg PO TID 30 Days #90 tablet 03/19/18 Levothyroxine Sodium [Synthroid 0.15 mg Tablet] 0.3 mg PO Q6AM #60 tablet Sodium Chloride [[place] Nasal [place] 44 ml Bottle] 1 spray NAREB Q4 #1 bottle 07/27 Allergies/Adverse Reactions: amoxicillin [Amoxicillin] Allergy (Verified 03/21/18 16:13) ciprofloxacin [From Cipro] Allergy (Verified 03/21/18 16:13) tramadol [Tramadol] Allergy (Verified 03/21/18 16:13) cillin Allergy (Uncoded 03/21/18 16:13) Review of Systems Constitutional: ABSENT: chills, fever(s), headache(s), weight gain, weight loss Eyes: ABSENT: visual disturbances Ears: ABSENT: hearing changes Cardiovascular: ABSENT: chest pain, dyspnea on exertion, edema, orthropnea, palpitations Respiratory: ABSENT: cough, hemoptysis Gastrointestinal: ABSENT: abdominal pain, constipation, diarrhea, hematemesis, hematochezia, nausea, vomiting Genitourinary: ABSENT: dysuria, hematuria Musculoskeletal: ABSENT: joint swelling Integumentary: ABSENT: rash, wounds Neurological: ABSENT: abnormal gait, abnormal speech, confusion, dizziness, focal weakness, syncope Psychiatric: ABSENT: anxiety, depression, homidical ideation, suicidal ideation Endocrine: ABSENT: cold intolerance, heat intolerance, polydipsia, polyuria Hematologic/Lymphatic: ABSENT: easy bleeding, easy bruising Physical Exam Vital Signs: Temp Pulse Resp BP Pulse Ox 100.8 F H 85 16 141/99 H 98 03/22/18 03:46 03/22/18 03:46 03/22/18 03:46 03/22/18 03:46 03/22/18 03:46 Intake & Output 03/20/18 03/21/18 03/22/18 11:59 11:59 11:59 Intake Total 5 Balance 5 Weight 91.3 kg General appearance: PRESENT: no acute distress, well-developed, well-nourished Head exam: PRESENT: atraumatic, normocephalic Eye exam: PRESENT: conjunctiva pink, EOMI, PERRLA. ABSENT: scleral icterus Ear exam: PRESENT: normal external ear exam Mouth exam: PRESENT: moist, tongue midline Neck exam: ABSENT: carotid bruit, JVD, lymphadenopathy, thyromegaly Respiratory exam: PRESENT: clear to auscultation jluis. ABSENT: rales, rhonchi, wheezes Cardiovascular exam: PRESENT: RRR. ABSENT: diastolic murmur, rubs, systolic murmur Pulses: PRESENT: normal dorsalis pedis pul Vascular exam: PRESENT: normal capillary refill GI/Abdominal exam: PRESENT: normal bowel sounds, soft. ABSENT: distended, guarding, mass, organolmegaly, rebound, tenderness Rectal exam: PRESENT: deferred Extremities exam: PRESENT: full ROM. ABSENT: calf tenderness, clubbing, pedal edema Neurological exam: PRESENT: alert, awake, oriented to person, oriented to place , oriented to time, oriented to situation, CN II-XII grossly intact. ABSENT: motor sensory deficit Psychiatric exam: PRESENT: appropriate affect, normal mood. ABSENT: homicidal ideation, suicidal ideation Skin exam: PRESENT: dry, intact, warm. ABSENT: cyanosis, rash Results Laboratory Results: 03/22/18 04:10 03/22/18 04:10 03/22/18 03/22/18 04:10 04:10 WBC 8.9 RBC 4.24 Hgb 13.4 Hct 38.9 MCV 92 MCH 31.6 MCHC 34.4 RDW 16.5 H Plt Count 302 Seg Neutrophils % 80.1 H Lymphocytes % 14.7 Monocytes % 5.0 Eosinophils % 0.0 Basophils % 0.2 Absolute Neutrophils 7.1 Absolute Lymphocytes 1.3 Absolute Monocytes 0.4 Absolute Eosinophils 0.0 Absolute Basophils 0.0 Sodium 143.4 Potassium 3.8 Chloride 101 Carbon Dioxide 22 Anion Gap 20 H BUN 7 Creatinine 1.00 Est GFR ( Amer) > 60 Est GFR (Non-Af Amer) > 60 Glucose 127 H Calcium 9.3 Total Bilirubin 1.3 AST 34 ALT 37 Alkaline Phosphatase 95 Total Protein 8.8 H Albumin 5.3 H Impressions: Acute Abdomen Series 03/21/18 16:28 IMPRESSION: NO RADIOGRAPHIC EVIDENCE FOR ACUTE ABDOMINAL DISEASE. Abdomen/Pelvis CT 03/21/18 19:28 IMPRESSION: NO SIGNIFICANT OR ACUTE FINDING IN THE ABDOMEN OR PELVIS ON CT SCAN WITH IV CONTRAST. Assessment & Plan - Diagnosis (1) Nausea and vomiting Qualifiers: Vomiting type: unspecified Vomiting Intractability: intractable Qualified Code(s): R11.2 - Nausea with vomiting, unspecified Is this a current diagnosis for this admission?: Yes Plan: Secondary to gastroenteritis. Suspect meal identified. Symptomatic management , IV fluid and electrolyte repletion as needed follow-up chemistry (2) Anxiety Is this a current diagnosis for this admission?: Yes Plan: Avoid benzodiazepine, trial Haldol (3) Hypothyroidism Qualifiers: Plan: Resume outpatient regiment (4) Medical non-compliance Is this a current diagnosis for this admission?: Yes Plan: Education (5) Adrenal insufficiency Is this a current diagnosis for this admission?: Yes Plan: Random cortisol of 19, no hypotension. Compensated, continue Cortef 10 3 times daily - Time Time Spent: 50 to 70 Minutes - Inpatient Certification Medical Necessity: Need Close Monitoring Due to Risk of Patient Decompensation
[2018-03-22] MEDS: LEVOTHYROXINE SODIUM 0.15 MG TABLET PO SCH (06:32)
[2018-03-22] MEDS: MAG HYDROX/AL HYDROX/SIMETH SUSP 30 ML UDCUP PO PRN (06:34)
[2018-03-22] MEDS ORDERED: ACETAMINOPHEN 325 MG TABLET ONE (07:49)
[2018-03-22] MEDS ORDERED: TIZANIDINE HCL 3 MG PO SCH (10:00)
[2018-03-22] MEDS: HYDROCORTISONE 10 MG TABLET PO SCH ×3 (10:38→18:32)
[2018-03-22] MEDS ORDERED: LANSOPRAZOLE 30 MG TAB.RAP.DR PO SCH (11:00)
[2018-03-22] MEDS ORDERED: (PENDING PHARMACY ID) (Cyanocobalamin (Vitamin B-12) [Vitamin B12] 2,500 MCG) PO SCH (12:00)
[2018-03-22] MEDS ORDERED: FENTANYL 25 MCG/HR PATCH.TD72 TD ONE (13:00)
[2018-03-22] MEDS: CHOLECALCIFEROL (D3) 1,000 UNIT TABLET PO SCH (13:09)
[2018-03-22] MEDS: NORMAL SALINE 1000 ML 1,000 ML IV PRN (14:38)
[2018-03-22] MEDS: DICYCLOMINE HCL 20 MG TABLET PO PRN (16:58)
[2018-03-22] MEDS ORDERED: CYANOCOBALAMIN (VITAMIN B-12) 1,000 MCG TABLET PO ONE (17:00)
--- NOTE | 2018-03-22 18:08 | PDOC PROGRESS REPORT ---
Subjective Progress Note for:: 03/22/18 Subjective:: 37 y.o. M who was admitted 03/21/2018 for nausea and vomiting 1 hour after eating fast food. She was treated with IVF and antiemetics. Of note, the patient was recently discharged from [facility] for a pituitary adenoma and HYPOthyroidism. The patient was discharged with prescriptions for Synthroid and Cortef. She was able to refill her Synthroid but did not refill her Cortef. TSH upon admission yesterday was 199. Cortisol 18. The patient was restarted on Synthroid and Cortef. Patient was seen this morning on rounds, she is resting comfortably in bed. She complains of mild epigastric pain, the area is tender to palpation. (+) Bowel sounds. Denies episodes of nausea or vomiting today. The patient is asking for her fentanyl patch, which she normally wears at home. Patient reports she is followed by [facility] in [place], [place]. Reason For Visit: NAUSEA AND VOMITING Physical Exam Vital Signs: Temp Pulse Resp BP Pulse Ox 99.9 F 81 18 146/90 H 97 03/22/18 15:24 03/22/18 15:24 03/22/18 15:24 03/22/18 15:24 03/22/18 15:24 Intake & Output 03/21/18 03/22/18 03/23/18 06:59 06:59 06:59 Intake Total 5 Output Total 375 Balance 5 -375 Weight 91.3 kg General appearance: PRESENT: well-developed, well-nourished Head exam: PRESENT: atraumatic Eye exam: PRESENT: conjunctiva pink, PERRLA Mouth exam: PRESENT: moist Neck exam: PRESENT: full ROM Respiratory exam: PRESENT: clear to auscultation jluis, symmetrical, unlabored Pulses: PRESENT: normal radial pulses, normal dorsalis pedis pul GI/Abdominal exam: PRESENT: soft, tenderness - EPIGASTRIC TENDERNESS Rectal exam: PRESENT: deferred Extremities exam: PRESENT: full ROM Musculoskeletal exam: PRESENT: ambulatory, full ROM Neurological exam: PRESENT: alert, awake, oriented to person, oriented to place , oriented to time, oriented to situation Psychiatric exam: PRESENT: appropriate affect Skin exam: PRESENT: dry, intact, warm Results Laboratory Results: 03/22/18 04:10 03/22/18 04:10 03/22/18 03/22/18 03/22/18 04:10 04:10 04:10 WBC 8.9 RBC 4.24 Hgb 13.4 Hct 38.9 MCV 92 MCH 31.6 MCHC 34.4 RDW 16.5 H Plt Count 302 Seg Neutrophils % 80.1 H Lymphocytes % 14.7 Monocytes % 5.0 Eosinophils % 0.0 Basophils % 0.2 Absolute Neutrophils 7.1 Absolute Lymphocytes 1.3 Absolute Monocytes 0.4 Absolute Eosinophils 0.0 Absolute Basophils 0.0 Sodium 143.4 Potassium 3.8 Chloride 101 Carbon Dioxide 22 Anion Gap 20 H BUN 7 Creatinine 1.00 Est GFR ( Amer) > 60 Est GFR (Non-Af Amer) > 60 Glucose 127 H Calcium 9.3 Total Bilirubin 1.3 AST 34 ALT 37 Alkaline Phosphatase 95 Total Protein 8.8 H Albumin 5.3 H Vitamin B12 455.0 Impressions: Acute Abdomen Series 03/21/18 16:28 IMPRESSION: NO RADIOGRAPHIC EVIDENCE FOR ACUTE ABDOMINAL DISEASE. Abdomen/Pelvis CT 03/21/18 19:28 IMPRESSION: NO SIGNIFICANT OR ACUTE FINDING IN THE ABDOMEN OR PELVIS ON CT SCAN WITH IV CONTRAST. Status: Imported from PACS Assessment & Plan - Diagnosis (1) Nausea and vomiting Qualifiers: Vomiting type: unspecified Vomiting Intractability: intractable Qualified Code(s): R11.2 - Nausea with vomiting, unspecified Is this a current diagnosis for this admission?: Yes Plan: All secondary to gastroenteritis after eating fast food patient reports she is unable to tolerate p.o. intake Initiate maintenance IVF Clear liquid diet Zofran as needed. Bentyl as needed. CT abdomen/pelvis benign (2) Hypothyroidism Qualifiers: Is this a current diagnosis for this admission?: Yes Plan: TSH 199 Resumed Synthroid (3) Adrenal insufficiency Is this a current diagnosis for this admission?: Yes Plan: Random Cortisol 18 Resumed Cortef (4) Chronic pain syndrome Is this a current diagnosis for this admission?: Yes Plan: Resumed home dose fentanyl patch Confirmed dose with patient's pharmacy - Time Time Spent with patient: 15-24 minutes Medications reviewed and adjusted accordingly: Yes Anticipated discharge: Home Within: within 48 hours - Inpatient Certification Based on my medical assessment, after consideration of the patient's comorbidities, presenting symptoms, or acuity I expect that the services needed warrant INPATIENT care.: Yes I certify that my determination is in accordance with my understanding of Medicare's requirements for reasonable and necessary INPATIENT services [42 CFR 412.3e].: Yes Medical Necessity: Risk of Complication if Not Cared For in Hospital
[2018-03-23] MEDS: DICYCLOMINE HCL 20 MG TABLET PO PRN ×4 (00:02→18:33)
[2018-03-23] MEDS: MAG HYDROX/AL HYDROX/SIMETH SUSP 30 ML UDCUP PO PRN ×3 (00:09→18:40)
[2018-03-23] MEDS: HEPARIN SOD (PORCINE) 5,000 UNIT/ML 1 ML SYRINGE SUBCUT SCH ×3 (01:05→17:39)
[2018-03-23] MEDS ORDERED: HYDRALAZINE HCL INJ/PF 20 MG/1 ML SDV IV PRN (01:41)
[2018-03-23] MEDS: NORMAL SALINE 1000 ML 1,000 ML IV PRN (02:35)
[2018-03-23] MEDS ORDERED: LANSOPRAZOLE 30 MG TAB.RAP.DR PO SCH (06:00)
[2018-03-23] MEDS: LEVOTHYROXINE SODIUM 0.15 MG TABLET PO SCH (06:30)
[2018-03-23 06:40] LABS: HEMATOCRIT 31.3 % (36.0-47.0); MEAN CORPUSCULAR HEMOGLOBIN 31.9 pg (27.0-33.4); MEAN CORPUSCULAR HGB CONC 34.6 g/dL (32.0-36.0); MEAN CORPUSCULAR VOLUME 92 fl (80-97); PLATELET COUNT 239 10^3/uL (150-450); RED BLOOD COUNT 3.39 10^6/uL (3.72-5.28); RED CELL DISTRIBUTION WIDTH 16.2 % (11.5-14.0)
[2018-03-23 06:41] LABS: HEMOGLOBIN 10.8 g/dL (12.0-15.5)
[2018-03-23 07:39] LABS: ANION GAP 12 (5-19); BLOOD UREA NITROGEN 14 mg/dL (7-20); CALCIUM 8.8 mg/dL (8.4-10.2); CARBON DIOXIDE 22 mmol/L (22-30); CHLORIDE 109 mmol/L (98-107); GLUCOSE 111 mg/dL (75-110); PHOSPHORUS 2.5 mg/dL (2.5-4.5); POTASSIUM 4.6 mmol/L (3.6-5.0); SODIUM 143.3 mmol/L (137-145)
[2018-03-23] MEDS ORDERED: CYANOCOBALAMIN (VITAMIN B-12) 1,000 MCG TABLET PO SCH (10:00)
[2018-03-23] MEDS: HYDROCORTISONE 10 MG TABLET PO SCH ×3 (10:43→18:34)
[2018-03-23] MEDS ORDERED: ONDANSETRON 4 MG TAB.RAPDIS SL PRN (10:49)
[2018-03-23] MEDS: CHOLECALCIFEROL (D3) 1,000 UNIT TABLET PO SCH (12:31)
[2018-03-23] MEDS: LANSOPRAZOLE 30 MG TAB.RAP.DR PO SCH (16:17)
[2018-03-23] MEDS ORDERED: OLANZAPINE 2.5 MG TABLET PO SCH (18:00)
[2018-03-23] MEDS: BUSPIRONE HCL 10 MG TABLET PO SCH (18:33)
[2018-03-24] MEDS: HEPARIN SOD (PORCINE) 5,000 UNIT/ML 1 ML SYRINGE SUBCUT SCH (01:35)
[2018-03-24] MEDS ORDERED: [UNRECOGNIZED DRUG - OTHER] IV ONE (06:35)
[2018-03-24] MEDS ORDERED: D5 IV ONE (06:35)
[2018-03-24] MEDS ORDERED: POTASSI CL IV ONE (06:35)
[2018-03-24] MEDS: BUSPIRONE HCL 10 MG TABLET PO SCH (06:54)
[2018-03-24] MEDS: LEVOTHYROXINE SODIUM 0.15 MG TABLET PO SCH (06:54)
[2018-03-24] MEDS: LANSOPRAZOLE 30 MG TAB.RAP.DR PO SCH (06:54)
[2018-03-24 08:37] VITALS: BP 98/64
[2018-03-24] MEDS ORDERED: FENTANYL 25 MCG/HR PATCH.TD72 TD SCH (10:00)
--- NOTE | 2018-03-26 14:58 | PDOC DISCHARGE SUMMARY ---
General - Admit/Disc Date/PCP Admission Date/Primary Care Provider: 03/21/18 21:57 CITLALI FUENTES Discharge Date: 03/23/18 - Discharge Diagnosis (1) Nausea and vomiting Is this a current diagnosis for this admission?: Yes (2) Hypothyroidism Is this a current diagnosis for this admission?: Yes (3) Adrenal insufficiency Is this a current diagnosis for this admission?: Yes (4) Chronic pain syndrome Is this a current diagnosis for this admission?: Yes - Additional Information Resuscitation Status: Full Code Discharge Diet: As Tolerated Discharge Activity: Activity As Tolerated Prescriptions: Buspirone HCl [Buspar 10 mg Tablet] 10 mg PO Q12A #28 tablet Dicyclomine HCl [Bentyl 20 mg Tablet] 20 mg PO Q6HP PRN #24 tablet PRN Reason: Lansoprazole [Prevacid 30 mg Odt Tablet] 30 mg PO BID@0600,1700 #60 tab.rap. Olanzapine [Zyprexa 2.5 mg Tablet] 2.5 mg PO BID #60 tablet Prochlorperazine Maleate [Compazine 5 Mg Tablet] 5 mg PO Q6HP PRN #16 tablet PRN Reason: For Nausea/Vomiting Home Medications: Fentanyl [Duragesic 25 mcg/hr Transdermal Patch] 1 patch TD Q48H 03/16/18 Ondansetron [Zofran Odt] 8 mg SL Q8HP PRN 03/16/18 Tapentadol HCl [Nucynta] 50 mg PO Q8HP PRN 03/16/18 Tizanidine HCl [Zanaflex] 6 mg PO TID 03/16/18 Cholecalciferol (Vitamin D3) [Vitamin D3 1000 Unit Tablet] 2,000 unit PO DAILY # 60 tablet 03/19/18 Cyanocobalamin (Vitamin B-12) [Vitamin B12] 2,500 mcg PO DAILY #30 tablet Hydrocortisone [Cortef 10 mg Tablet] 10 mg PO TID 30 Days #90 tablet 03/19/18 Levothyroxine Sodium [Synthroid 0.15 mg Tablet] 0.3 mg PO Q6AM #60 tablet Sodium Chloride [[place] Nasal [place] 44 ml Bottle] 1 spray NAREB Q4 #1 bottle 07/27 Buspirone HCl [Buspar 10 mg Tablet] 10 mg PO Q12A #28 tablet 03/23/18 Dicyclomine HCl [Bentyl 20 mg Tablet] 20 mg PO Q6HP PRN #24 tablet 03/23/18 Lansoprazole [Prevacid 30 mg Odt Tablet] 30 mg PO BID@0600,1700 #60 tab. 03/23/18 Olanzapine [Zyprexa 2.5 mg Tablet] 2.5 mg PO BID #60 tablet 03/23/18 Prochlorperazine Maleate [Compazine 5 Mg Tablet] 5 mg PO Q6HP PRN #16 tablet History of Present Illness History of Present Illness: RODGER LEIVA is a 37 year old female with a past medical history of anxiety, chronic pain, pituitary adenoma, [place]'s disease, hypothyroidism and poor compliance. Discharge 48 hours ago following noncompliance resulting in adrenal insufficiency and hypothyroidism. She returns with 6 hours of nausea with vomiting of gastric content. She consumed a suspect meal in which both her boyfriend and herself were nauseated and vomited. He is recovered but she has had persistent nonbloody vomiting. In the emergency room she has had symptomatic management, an unremarkable CT abdomen pelvis and referred to the hospitalist for admission. Hospital Course Hospital Course: 37 y.o. M who was admitted 03/21/2018 for nausea and vomiting 1 hour after eating fast food. Initial creatinine 1.12, baseline for this patient is <1.0. All other lab work was benign. Acute abdomen series and CT abdomen/pelvis were both benign. She was treated with IVF and antiemetics. The patient was never observed to be vomiting while at [facility], she mainly complained of nausea and epigatric pain. The patient began tolerating clear liquids 24 hour into her hospital stay. On day 2 she was able to tolerate a regular diet. Of note, the patient was recently discharged from [facility] for a pituitary adenoma and HYPOthyroidism. The patient was discharged with prescriptions for Synthroid and Cortef. TSH upon admission yesterday was 199. Cortisol 18. The patient was restarted on Synthroid and Cortef upon admission. Ms. Leiva is well known to the PSYCH service at [facility]. She is referred to outpatient PSYCH services almost every time she comes to [facility]. The patient reported to previous hospitalists that she was not able to schedule an appointment with an outpatient provider (reasoning unknown). Dr. George was consulted to evaluate the patient, specifically to make medication recommendations. Please refer to Dr. George's note regarding a detailed account of her assessment. Following 48 hours at the hospital, the patient was deemed safe for discharge. Her gastroparesis had resolved. The patient was given her discharge instructions on 03/23/2018 at approximately 1800. The patient stated at that time that she was "too nauseous to move" and would not get out of bed. The patient and her fianc were informed that there was no medical reason for her to remain in the hospital. She was instructed to take her anti-nausea medication prior to leaving [facility] and get her prescription filled as soon as she left the hospital. The patient was also being sent home with prescriptions for Bentyl (abdominal cramping), compazine (nausea), pepcid (acid reflux), Buspar and Zyprexa (per psych recommendations). The patient was informed that if she decided to stay at [facility] for the night, even though she was already technically discharged, she would be responsible for paying [id number] for her hospital bill. The patient stated understanding. Despite the possible financial burden , the patient stated she wanted to remain in the hospital. At approximately 2200 , the patient stated she was ready to go home. She was informed that the post graduate intern (Dr. Singh) would be calling in her prescriptions to her pharmacy, and they would be ready for fruit or nut picker once she leaves the hospital. For an unknown reason, the patient refused to leave [facility] once she received this news.The following morning, Sammie from utilization review approached the patient about her request to stay in the hospital. The patient stated she was ready to go home. She was escorted out to a POV via wheelchair by hospital staff. She is discharged into the care of her fianc. Physical Exam Vital Signs: Temp Pulse Resp BP Pulse Ox 98.1 F 92 17 98/64 L 99 03/24/18 08:35 03/24/18 08:35 03/24/18 08:35 03/24/18 08:35 03/24/18 08:35 Intake & Output 03/23/18 03/24/18 03/25/18 06:59 06:59 06:59 Intake Total 1270 1118 Output Total 976 3445 Balance 295 -707 Weight 94.2 kg 92.8 kg Results Laboratory Results: 03/23/18 06:24 03/23/18 06:24 Impressions: Acute Abdomen Series 03/21/18 16:28 IMPRESSION: NO RADIOGRAPHIC EVIDENCE FOR ACUTE ABDOMINAL DISEASE. Abdomen/Pelvis CT 03/21/18 19:28 IMPRESSION: NO SIGNIFICANT OR ACUTE FINDING IN THE ABDOMEN OR PELVIS ON CT SCAN WITH IV CONTRAST. Status: Imported from PACS Qualifiers - * PATIENT BEING DISCHARGED WITH ANY OF THE FOLLOWING DIAGNOSIS: No Plan Time Spent: Greater than 30 Minutes
== END 2018-03-24 09:40 | disposition home or self-care (01) ==
LOC: ER 16:12 → EH 21:57 → 4S 03-22 00:24
PROVIDERS: ADMIT Internal Medicine; ATTEND Internal Medicine
DX: R11.2 Nausea with vomiting, unspecified (principal); E03.9 Hypothyroidism, unspecified; Z90.49 Acquired absence of other specified parts of digestive tract; Z90.710 Acquired absence of both cervix and uterus; E27.1 Primary adrenocortical insufficiency; G89.4 Chronic pain syndrome; F41.9 Anxiety disorder, unspecified; D35.2 Benign neoplasm of pituitary gland; R10.13 Epigastric pain; Z91.19 Patient's noncompliance with other medical treatment and regimen; Z79.899 Other long term (current) drug therapy
CPT/HCPCS: 99285; 96372; 96361; 51701; 96374; 96375; 36415 ×3; 87040; 84439; 82962; 82607; 83690; 83735; 84100; 84443; 85025 ×2; 85027; 81025; 80048; 80053 ×2; 81001; 80307; 82533 ×2; 74022; 74177; G0378 ×4; J3490 ×18; J1644; J0500; S0119; J1630; J2765; J0780; J2550; J7030 ×3; S0028

== ENCOUNTER 2018-09-14 21:03 | Emergency (ER) | payer MEDICAID ==
--- NOTE | 2018-09-14 21:43 | RADIOLOGY REPORT (SQ) ---
EXAM DESCRIPTION: XR ANKLE 3 OR MORE VIEWS COMPLETED DATE/TME: 09/14/2018 21:06 CLINICAL HISTORY: 38 years, Female, pain Findings: There is a minimally displaced fracture of the lateral malleolus. Ankle mortise is not widened. Moderate diffuse soft tissue swelling, particularly laterally. IMPRESSION: Minimally displaced distal fibula/lateral malleolus fracture.
--- NOTE | 2018-09-14 21:44 | RADIOLOGY REPORT (SQ) ---
EXAM DESCRIPTION: XR FOOT 3 OR MORE VIEWS COMPLETED DATE/TME: 09/14/2018 00:00 CLINICAL HISTORY: 38 years, Female, L ankle/foot injury. Miss stepped and turned foot Findings: Bony alignment is anatomic. No fracture or dislocation. Soft tissues are unremarkable. IMPRESSION: No fracture in the right foot.
[2018-09-14] MEDS ORDERED: ACETAMINOPHEN 325 MG TABLET PO ONE (21:57)
[2018-09-14] MEDS ORDERED: MORPHINE SULFATE 10 MG/ML INJ IM ONE (22:23)
--- NOTE | 2018-09-14 22:28 | ER Document Report ---
ED Extremity Problem, Lower - General Chief Complaint: Ankle Injury Stated Complaint: LEFT ANKLE PAIN Time Seen by Provider: 09/14/18 22:01 TRAVEL OUTSIDE OF THE [place] IN LAST 30 DAYS: No - HPI Patient complains to provider of: Injury Location: Ankle Occurred: This morning Onset/Duration: Sudden, Constant Quality of pain: Sharp Severity: Severe Context: Fell Recent injury: No Exacerbated by: Walking Relieved by: Nothing Notes: Patient is a 38-year-old female that presents to the emergency department for chief complaint of left ankle injury. Patient states she fell in the [employer] parking lot this morning. She states she was walking and tripped rolling her left ankle. She has had sharp pain in her lateral left ankle since then. She states she has broken her left foot before but denies injury to the ankle in the past. Her pain is worse with walking and standing. She states that she has tried icing with minimal improvement. She is on Percocet 10 mg daily for chronic back issues which she has been taking as well. She denies any syncope, head injury and loss of consciousness. Past Medical History: Chronic back pain Past Surgical History: Reviewed in chart Social History: Denies drugs alcohol and tobacco Family History: Reviewed and noncontributory for presenting illness Allergies: Reviewed, see documented allergy list. REVIEW OF SYSTEMS: CONSTITUTIONAL : No fever No chills No diaphoresis No recent illness EENT: No vision changes No congestion No sore throat CARDIOVASCULAR: No chest pain No palpitations RESPIRATORY: No shortness of breath No cough No difficulty breathing GASTROINTESTINAL: No abdominal pain No nausea No vomiting No diarrhea GENITOURINARY: No dysuria No hematuria No difficulty urinating MUSCULOSKELETAL: No back pain Left ankle pain No arm pain SKIN: No rashes No lesions LYMPHATIC: No swollen, enlarged glands. NEUROLOGICAL: No lightheadedness No headache No weakness No paresthesias PSYCHIATRIC: No anxiety No depression PHYSICAL EXAMINATION: Vital signs reviewed, nursing noted reviewed. GENERAL: Well-appearing, well-nourished and in no acute distress. HEAD: Atraumatic, normocephalic. EYES: Eyes appear normal, extraocular movements intact, sclera anicteric, conjunctiva are normal. ENT: nares patent, oropharynx clear without exudates. Moist mucous membranes. NECK: Normal range of motion, supple without lymphadenopathy LUNGS: Breath sounds clear to auscultation bilaterally and equal. No wheezes rales or rhonchi. HEART: Regular rate and rhythm without murmurs ABDOMEN: Soft, nontender, normoactive bowel sounds. No rebound, guarding, or rigidity. No masses appreciated. EXTREMITIES: Tenderness and edema to left lateral malleolus, no obvious deformity, +2/4 left DP and PT pulse, no left foot tenderness NEUROLOGICAL: No focal neurological deficits. Moves all extremities spontaneously Motor and sensory grossly intact on exam. No proximal fibular tenderness PSYCH: Normal mood, normal affect. SKIN: Warm, Dry, normal turgor. Left pretibial abrasion with no active bleeding - Related Data Allergies/Adverse Reactions: amoxicillin [Amoxicillin] Allergy (Verified 03/21/18 16:13) ciprofloxacin [From Cipro] Allergy (Verified 03/21/18 16:13) tramadol [Tramadol] Allergy (Verified 03/21/18 16:13) cillin Allergy (Uncoded 03/21/18 16:13) Past Medical History - Social History Smoking Status: Never Smoker Drug Abuse: None Family History: Hypertension Patient has suicidal ideation: No Patient has homicidal ideation: No - Past Medical History Cardiac Medical History: Reports: Hx Hypercholesterolemia, Hx Hypertension Endocrine Medical History: Reports: Hx Graves' Disease, Hx Hypothyroidism Renal/ Medical History: Denies: Hx Peritoneal Dialysis Musculoskeletal Medical History: Reports Hx Fibromyalgia Psychiatric Medical History: Reports: Hx Anxiety, Hx Depression Past Surgical History: Reports: Hx Appendectomy, Hx Section - x2, Hx Cholecystectomy, Hx Hysterectomy, Hx Thyroid Surgery - Immunizations Hx Diphtheria, Pertussis, Tetanus Vaccination: No Physical Exam - Vital signs Vitals: Temp Pulse Resp BP Pulse Ox 98.8 F 102 H 16 106/72 96 09/14/18 21:07 09/14/18 21:07 09/14/18 21:07 09/14/18 21:07 09/14/18 21:07 Course - Re-evaluation Re-evalutation: 09/14/18 22:26 Vitals reviewed. Nursing notes reviewed. Patient was given Tylenol for pain and had no improvement of symptoms, she was then given a dose of morphine. Her x-ray shows mildly displaced distal fibula fracture. Patient placed in ankle stirrup and posterior short splint and was given crutches. She will be referred to orthopedics for close follow-up. She was counseled on RICE therapy. She is stable at discharge. Foot X-Ray 09/14/18 00:00 IMPRESSION: No fracture in the right foot. Ankle X-Ray 09/14/18 21:06 IMPRESSION: Minimally displaced distal fibula/lateral malleolus fracture. - Vital Signs Vital signs: Temp Pulse Resp BP Pulse Ox 98.8 F 102 H 16 106/72 96 09/14/18 21:07 09/14/18 21:07 09/14/18 21:07 09/14/18 21:07 09/14/18 21:07 Discharge - Discharge Clinical Impression: Displaced fracture of distal end of fibula Condition: Stable Disposition: HOME, SELF-CARE Instructions: Ice & Elevation ([facility]), Fracture of Distal Fibula ([facility]) Additional Instructions: Please return to the emergency department if you have any worsening, or concern of your symptoms. Please return to the emergency department if you develop chest pain, difficulty breathing, severe abdominal pain, or ongoing vomiting. Please follow-up with your primary care physician in 2-3 days and any other recommended physicians. If prescribed, take all medications as directed. If you have any questions or concerns do not hesitate to return the emergency department for evaluation. Follow with orthopedic surgery in the next few days for reevaluation and further casting Keep your splint clean, dry, and intact until you are seen by orthopedics Referrals: ISHAAN GARCIA MD [ACTIVE STAFF] - Follow up in 3-5 days
[2018-09-14 23:32] VITALS: BP 105/70
== END 2018-09-14 23:32 | disposition home or self-care (01) ==
LOC: ER 21:03
DX: S82.62XA Displaced fracture of lateral malleolus of left fibula, initial encounter for closed fracture (principal); W01.0XXA Fall on same level from slipping, tripping and stumbling without subsequent striking against object, initial encounter; Y93.01 Activity, walking, marching and hiking; Y92.481 Parking lot as the place of occurrence of the external cause; I10 Essential (primary) hypertension; Z88.0 Allergy status to penicillin; Z88.1 Allergy status to other antibiotic agents; Z88.5 Allergy status to narcotic agent
CPT/HCPCS: 99283; 96372; 73610; 73630; 29515; J3490; J2270

== ENCOUNTER 2019-06-27 16:24 | Emergency (ER) | payer SELFPAY ==
--- NOTE | 2019-06-27 16:54 | ER Document Report ---
ED Medical Screen (RME) - General Chief Complaint: Psych Problem Stated Complaint: SUICIDAL IDEATION Time Seen by Provider: 06/27/19 16:52 Primary Care Provider: SADE CHAN MD [Primary Care Provider] - Follow up as needed Mode of Arrival: Ambulatory Information source: Patient Notes: 39-year-old female presented to ED for suicidal ideations. She states that she has been having these thoughts for couple weeks now. She states usually she finds somebody in her past when she gets to the breaking point but she cannot do this on her own. She states she was on a lot of antipsychotic medicines but she lost her Medicaid when her son turned 18 and she does not have the means to get her medications. She states she is having the evil thoughts in her head at this time but she has not made a plan as yet but she is afraid she would hurt herself. She has had a full hysterectomy. I have greeted and performed a rapid initial assessment of this patient. A comprehensive ED assessment and evaluation of the patient, analysis of test results and completion of medical decision making process will be conducted by an additional ED providers. TRAVEL OUTSIDE OF THE [place] IN LAST 30 DAYS: No - Related Data Allergies/Adverse Reactions: amoxicillin [Amoxicillin] Allergy (Verified 03/21/18 16:13) ciprofloxacin [From Cipro] Allergy (Verified 03/21/18 16:13) tramadol [Tramadol] Allergy (Verified 03/21/18 16:13) gabapentin Adverse Reaction (Verified 06/27/19 16:37) olanzapine [From Zyprexa] Adverse Reaction (Verified 06/27/19 16:37) cillin Allergy (Uncoded 03/21/18 16:13) Past Medical History - Past Medical History Cardiac Medical History: Reports: Hx Hypercholesterolemia, Hx Hypertension Endocrine Medical History: Reports: Hx Graves' Disease, Hx Hypothyroidism Renal/ Medical History: Denies: Hx Peritoneal Dialysis Musculoskeltal Medical History: Reports Hx Fibromyalgia Psychiatric Medical History: Reports: Hx Anxiety, Hx Depression Past Surgical History: Reports: Hx Appendectomy, Hx Section - x2, Hx Cholecystectomy, Hx Hysterectomy, Hx Thyroid Surgery - Immunizations Hx Diphtheria, Pertussis, Tetanus Vaccination: No Physical Exam - Vital signs Vitals: Temp Pulse Resp BP Pulse Ox 98.4 F 107 H 18 147/104 H 94 06/27/19 16:30 06/27/19 16:30 06/27/19 16:30 06/27/19 16:30 06/27/19 16:30 Course - Vital Signs Vital signs: Temp Pulse Resp BP Pulse Ox 98.4 F 107 H 18 147/104 H 94 06/27/19 16:30 06/27/19 16:30 06/27/19 16:30 06/27/19 16:30 06/27/19 16:30 Doctor's Discharge - Discharge Referrals: SADE CHAN MD [Primary Care Provider] - Follow up as needed
[2019-06-27 17:26] LABS: ABSOLUTE EOSINOPHILS # (AUTO) 0.2 10^3/uL (0.0-0.6); ABSOLUTE LYMPHOCYTES (AUTO) 3.7 10^3/uL (0.5-4.7); ABSOLUTE MONOCYTES (AUTO) 0.5 10^3/uL (0.1-1.4); ABSOLUTE NEUT (AUTO) 5.3 10^3/uL (1.7-8.2); BASOPHILS % (AUTO) 0.3 % (0-2); EOSINOPHILS % (AUTO) 1.9 % (0-6); HEMATOCRIT 40.6 % (36.0-47.0); HEMOGLOBIN 13.5 g/dL (12.0-15.5); LYMPHOCYTES % (AUTO) 38.2 % (13-45); MEAN CORPUSCULAR HEMOGLOBIN 26.2 pg (27.0-33.4); MEAN CORPUSCULAR HGB CONC 33.2 g/dL (32.0-36.0); MEAN CORPUSCULAR VOLUME 79 fl (80-97); MONOCYTES % (AUTO) 5.2 % (3-13); PLATELET COUNT 358 10^3/uL (150-450); RED BLOOD COUNT 5.14 10^6/uL (3.72-5.28); RED CELL DISTRIBUTION WIDTH 15.6 % (11.5-14.0); SEGMENTED NEUTROPHILS % (AUTO) 54.4 % (42-78); TOTAL CELLS COUNTED % (AUTO) 100 %; WHITE BLOOD COUNT 9.7 10^3/uL (4.0-10.5)
--- NOTE | 2019-06-27 17:35 | ER Document Report ---
ED Psych Disorder / Suicide - General Chief Complaint: Psych Problem Stated Complaint: SUICIDAL IDEATION Time Seen by Provider: 06/27/19 16:52 Primary Care Provider: SADE CHAN MD [NO LOCAL MD] - Follow up as needed Mode of Arrival: Ambulatory TRAVEL OUTSIDE OF THE [place] IN LAST 30 DAYS: No - HPI Notes: This is a 39-year-old female presenting to the emergency department for suicidal ideation. Patient states that she is been having thoughts of hurting herself for least a couple of weeks. Patient states that she is usually able to find some mild to help her when she is having these thoughts of self-harm before she gets to the "breaking point" but she is unable to overcome her suicidal ideation on her own. Patient states that she has been noncompliant with her antipsychotic medications because of her Medicaid being lost when her son turned 18. Patient states she does not currently have the means to get medications. Patient states while she is having thoughts of self-harm she is not formalized the plan, however, she does feel she would hurt herself given the opportunity. - Related Data Allergies/Adverse Reactions: amoxicillin [Amoxicillin] Allergy (Verified 03/21/18 16:13) ciprofloxacin [From Cipro] Allergy (Verified 03/21/18 16:13) tramadol [Tramadol] Allergy (Verified 03/21/18 16:13) gabapentin Adverse Reaction (Verified 06/27/19 16:37) olanzapine [From Zyprexa] Adverse Reaction (Verified 06/27/19 16:37) cillin Allergy (Uncoded 03/21/18 16:13) Home Medications: Prilosec 20 mg twice daily. Celexa 20 mg daily. Doxepin 25 mg 2 capsules twice daily. Buspirone 10 mg 2 tablets 3 times daily. Synthroid 150 mcg one in morning. Latuda 80 mg 1 in the evening. Benztropine 1 mg twice daily. Vistaril 50 mg 3 times daily. Bentyl 20 mg as needed. Tizanidine HCL 4 mg 3 times daily. Compazine 5 mg PRN. Fentanyl 25 mg patch change every other day. Percocet 10 mg 3 times daily. Prozac 40 mg twice daily. Vitamin B12 2000 mg daily. Vitamin D3 daily Past Medical History - General Information source: Patient - Social History Smoking Status: Former Smoker Frequency of alcohol use: None Drug Abuse: None Family History: Hypertension Patient has suicidal ideation: Yes Patient has homicidal ideation: No - Past Medical History Cardiac Medical History: Reports: Hx Hypercholesterolemia, Hx Hypertension Endocrine Medical History: Reports: Hx Graves' Disease, Hx Hypothyroidism Renal/ Medical History: Denies: Hx Peritoneal Dialysis Musculoskeletal Medical History: Reports Hx Fibromyalgia Psychiatric Medical History: Reports: Hx Anxiety, Hx Depression Past Surgical History: Reports: Hx Appendectomy, Hx Section - x2, Hx Cholecystectomy, Hx Hysterectomy, Hx Thyroid Surgery - Immunizations Hx Diphtheria, Pertussis, Tetanus Vaccination: No Review of Systems - Review of Systems Constitutional: No symptoms reported EENT: No symptoms reported Cardiovascular: No symptoms reported Respiratory: No symptoms reported Gastrointestinal: No symptoms reported Genitourinary: No symptoms reported Female Genitourinary: No symptoms reported Musculoskeletal: No symptoms reported Skin: No symptoms reported Hematologic/Lymphatic: No symptoms reported Neurological/Psychological: Anxiety, Suicidal ideation -: Yes All other systems reviewed and negative Physical Exam - Vital signs Vitals: Temp Pulse Resp BP Pulse Ox 98.4 F 107 H 18 147/104 H 94 06/27/19 16:30 06/27/19 16:30 06/27/19 16:30 06/27/19 16:30 06/27/19 16:30 - Notes Notes: PHYSICAL EXAMINATION: GENERAL: Well-appearing, well-nourished and in no acute distress. HEAD: Atraumatic, normocephalic. EYES: Pupils equal round and reactive to light, extraocular movements intact, sclera anicteric, conjunctiva are normal. ENT: nares patent, oropharynx clear without exudates. Moist mucous membranes. NECK: Normal range of motion, supple without lymphadenopathy LUNGS: Breath sounds clear to auscultation bilaterally and equal. No wheezes rales or rhonchi. HEART: Regular rate and rhythm without murmurs ABDOMEN: Soft, nontender, normoactive bowel sounds. No guarding, no rebound. No masses appreciated. EXTREMITIES: Normal range of motion, no pitting or edema. No cyanosis. NEUROLOGICAL: No focal neurological deficits. Moves all extremities spontaneousl y and on command. PSYCH: depressed mood, normal affect. SKIN: Warm, Dry, normal turgor, no rashes or lesions noted. Course - Re-evaluation Re-evalutation: 06/27/19 20:13 Patient is in no acute distress at this time. Patient has no focal neurologic findings. Patient is tolerating dinner tray without difficulty. Patient states that she has some difficulty with short-term memory for the past few months. This MD sees no focal findings on her exam consistent with intracranial pathology, e.g., equal pupils, normal speech, no facial droop, no difficulty with movement of extremities, no complaint of sensory deficit. This md tried to reassure patient that her neurologic exam is not concerning for evidence of intracranial pathology from a clinical standpoint but reassured her that laboratory findings, vital signs, and other objective findings will be reviewed and the patient will be informed of abnormal findings. Pt's home meds with exception of percocet and fentanyl have been reconciled and ordered by this md. 06/28/19 00:51 Patient is resting and is in no acute distress at this time. - Vital Signs Vital signs: Temp Pulse Resp BP Pulse Ox 97.6 F 95 20 124/77 96 06/27/19 21:09 06/27/19 21:09 06/27/19 21:09 06/27/19 21:09 06/27/19 21:09 06/28/19 00:52 Vital signs reviewed by this MD. - Laboratory Result Diagrams: 06/27/19 17:05 06/27/19 17:05 Laboratory results interpreted by me: 06/27/19 06/27/19 06/27/19 17:05 17:05 22:25 MCV 79 L MCH 26.2 L RDW 15.6 H Glucose 129 H Alkaline Phosphatase 209 H Urine Urobilinogen 4.0 H Salicylates < 1.0 L Acetaminophen < 10 L 06/28/19 00:52 Laboratory results reviewed by this MD. - EKG Interpretation by Me Additional EKG results interpreted by me: 06/27/19 20:33 EKG performed at 1715 hrs. on 06/27/2019 reviewed by this MD. Findings patient has a normal sinus rhythm with a rate of 98, normal axis, please proceed QRS complexes, narrow Q RS complexes are present, no obvious ST elevation or depression is noted on the patient's E KG. Comparison with the patient's prior EKG from 03/18/2018 shows grossly similar morphology. - Consults DR MELANI CORBETT Time consulted: 00:55 - DR CORBETT WILL SEE PT IN AM Reason for consultation: 06/28/19 00:56 SUICIDAL IDEATION Consulted provider: will come to ER Discharge - Discharge Clinical Impression: Suicidal ideation, Noncompliance with medication regimen, LOSS OF HEALTH INSURANCE Condition: Serious Disposition: PSYCH HOSP/UNIT Referrals: SADE CHAN MD [NO LOCAL MD] - Follow up as needed MELANI CORBETT PSYD [ALLIED HEALTH PROFESSIONAL] - 06/28/19
[2019-06-27 17:37] LABS: ALBUMIN 4.5 g/dL (3.5-5.0); ALKALINE PHOSPHATASE 209 U/L (38-126); ANION GAP 11 (5-19); ASPARTATE AMINO TRANSFERASE 21 U/L (14-36); BILIRUBIN,TOTAL 0.4 mg/dL (0.2-1.3); BLOOD UREA NITROGEN 14 mg/dL (7-20); CALCIUM 9.8 mg/dL (8.4-10.2); CARBON DIOXIDE 26 mmol/L (22-30); CHLORIDE 105 mmol/L (98-107); GLUCOSE 129 mg/dL (75-110); TOTAL PROTEIN 8.1 g/dL (6.3-8.2)
[2019-06-27 17:40] LABS: ACETAMINOPHEN < 10 ug/mL (10-30); ALCOHOL < 10 mg/dL (NONE DETECTED); SALICYLATE < 1.0 mg/dL (2.0-20.0)
[2019-06-27] MEDS ORDERED: ACETAMINOPHEN 325 MG TABLET PO PRN (18:33)
[2019-06-27] MEDS: IBUPROFEN 800 MG TABLET PO PRN (18:38)
[2019-06-27] MEDS ORDERED: PROCHLORPERAZINE MALEATE 5 MG TABLET PO PRN (19:36)
[2019-06-27 22:48] LABS: APPEARANCE,URINE SLIGHTLY-CLOUDY; BILIRUBIN,URINE NEGATIVE (NEGATIVE); COLOR,URINE YELLOW; GLUCOSE, URINE NEGATIVE (NEGATIVE); KETONES,URINE NEGATIVE (NEGATIVE); LEUKOCYTE ESTERASE,URINE NEGATIVE (NEGATIVE); NITRITE,URINE NEGATIVE (NEGATIVE); PROTEIN,URINE NEGATIVE (NEGATIVE); URINE SPECIFIC GRAVITY 1.028
[2019-06-27] MEDS ORDERED: TIZANIDINE HCL 4 MG TABLET PO ONE (23:00)
[2019-06-27] MEDS ORDERED: DOXEPIN HCL 25 MG CAPSULE PO ONE (23:00)
[2019-06-27 23:20] LABS: URINE AMPHETAMINES SCREEN NEGATIVE; URINE BARBITURATES SCREEN NEGATIVE; URINE BENZODIAZEPINES SCREEN NEGATIVE; URINE COCAINE SCREEN NEGATIVE; URINE MARIJUANA (THC) SCREEN UNCONFIRMED POSITIVE; URINE METHADONE SCREEN NEGATIVE; URINE PHENCYCLIDINE SCREEN NEGATIVE
--- NOTE | 2019-06-28 00:28 | EKG REPORT ---
SEVERITY:- NORMAL ECG - SINUS RHYTHM : Confirmed by: Bárbara Swenson 28-Jun-2019 00:27:39
[2019-06-28] MEDS ORDERED: LEVOTHYROXINE SODIUM 0.112 MG TABLET ONE (06:27)
[2019-06-28] MEDS: PANTOPRAZOLE SODIUM 20 MG TABLET.DR PO SCH ×2 (07:04→18:10)
[2019-06-28] MEDS: LEVOTHYROXINE SODIUM 0.112 MG TABLET PO SCH (07:05)
[2019-06-28] MEDS ORDERED: FLUOXETINE HCL 20 MG CAPSULE PO SCH (10:00)
[2019-06-28] MEDS: TIZANIDINE HCL 4 MG TABLET PO SCH ×3 (10:03→18:11)
[2019-06-28] MEDS: HYDROXYZINE PAMOATE 50 MG CAPSULE PO SCH ×3 (10:03→18:10)
[2019-06-28] MEDS: CITALOPRAM HYDROBROMIDE 20 MG TABLET PO SCH (10:03)
[2019-06-28] MEDS: DOXEPIN HCL 25 MG CAPSULE PO SCH ×2 (10:04→18:09)
[2019-06-28] MEDS: CHOLECALCIFEROL (D3) 1,000 UNIT (25 MCG) TABLET PO SCH (10:05)
[2019-06-28] MEDS: BUSPIRONE HCL 10 MG TABLET PO SCH ×3 (10:05→18:10)
[2019-06-28] MEDS: CYANOCOBALAMIN (VITAMIN B-12) 1,000 MCG TABLET PO SCH (10:06)
--- NOTE | 2019-06-28 12:45 | PSYCHOLOGICAL NOTE ---
Psych Note - Psych Note Date seen by psych provider: 06/28/19 Time seen by psych provider: 09:35 Psych Note: Reason for Consult: Suicidal ideation Patient presented to [facility] ED for with suicidal ideation. Patient reports she called the crisis hotline today and they brought her in to receive additional help. Patient reports she has a history of extreme bipolar and depression and states that she lost her insurance last month due to her son turning 18. Patient reports she has been having hallucinations telling her to harm herself. Patient reports she is sleeping ok but has been crying over the past few days. Patient admits to a plan to harm herself, reports "I was going to find whatever medication I could and take it". Patient reports that she called a hotline and someone came to her home and stated that she needed to come to the hospital. She states that she was thinking of hurting herself last night. She confirms she has a plan which would be to take all of her medications. Patient states she still has some of her medications however "a couple weeks ago" ran out of her psychiatric medications. She reports that her son turned 18 so she no longer has Medicaid so she is unable to obtain her medications. She continued to report that she has memory problems and has difficulty with words and then stated "and dreaming." Patient looks confused slightly when she stated dreaming and continued to engage in word searching before coming up with thinking. Patient reports that even when she was on her medications she was telling her outpatient mental health provider that she was hearing and seeing things but they told her that she has other medical conditions that could be causing it such as her thyroid. She states that she always feels like there is a "presence there." She reports when she sees things it is in color and only knows that is not there because when she asked if anybody else thought they tell her no. Patient states she has bipolar. Patient is alert and oriented to person, place, time and circumstance. Mood is hypomanic with flat affect. Patient endorses suicidal ideation with plan of overdose on her medical medications. Patient denies homicidal ideation. Delusions are absent and behaviors congruent with an intact reality based presentation however is struggling with organized and linear thought process. Eye contact is poor. Conversational speech demonstrates cognitive processing delays in responses. Patient demonstrates significant difficulty in attention and concentration; she frequently has to ask clinician to repeat questions, stops in the middle of a sentence, and demonstrates some frustration with hers elf when word searching. Patient Reports medical history: Hypercholesterolemia Hypertension Graves' Disease Hypothyroidism Fibromyalgia Past Surgical History: Appendectomy Section - x2 Cholecystectomy Hysterectomy Thyroid Surgery Patient reports Psychiatric History: Bipolar with psychotic features Home Medications: Prilosec 20 mg twice daily. Celexa 20 mg daily. Doxepin 25 mg 2 capsules twice daily. Buspirone 10 mg 2 tablets 3 times daily. Synthroid 150 mcg one in morning. Latuda 80 mg 1 in the evening. Benztropine 1 mg twice daily. Vistaril 50 mg 3 times daily. Bentyl 20 mg as needed. Tizanidine HCL 4 mg 3 times daily. Compazine 5 mg PRN. Fentanyl 25 mg patch change every other day. Percocet 10 mg 3 times daily. Prozac 40 mg twice daily. Vitamin B12 2000 mg daily. Vitamin D3 daily Medication recommendations per [facility]'s contracted psychiatrist Dr. Jo DHILLON are as follows: Please discontinue home medications of Celexa, Latuda and Cogentin please decrease Prozac to 20 mg twice daily please decrease BuSpar to 10 mg twice daily Please add Zyprexa 2.5 mg every morning and 5 mg nightly continue Vistaril 50 every 8 hours PRN Impression\\plan: Patient is recommended to continue under IVC. Patient presents to [facility] ED disclosing suicidal ideation with a plan of overdose. Patient recently abruptly had to stop all of her psychiatric medications after losing her insurance. Patient is clearly demonstrating difficulty in attention and concentration. She frequently has to request questions to be repeated, word searches, and uses incorrect words as evidenced by when patient stated "dreaming" rather than "thinking." Medication recommendations have been provided. Patient will be reevaluated. Dr. George was consulted to care management of this patient; attending physicians in agreement with recommendations and disposition.
[2019-06-28] MEDS: IBUPROFEN 800 MG TABLET PO PRN (15:04)
[2019-06-28] MEDS ORDERED: LURASIDONE HCL 40 MG TABLET PO SCH (18:00)
--- NOTE | 2019-06-28 18:08 | ER Document Report ---
Doctor's Note Notes: 06/28/19 18:04 Patient is resting comfortably on stretcher eating her dinner. Patient is in no acute distress. I did make patient aware of medication changes. Patient verbalized understanding denies questions at this time.
[2019-06-28] MEDS: FLUOXETINE HCL 20 MG CAPSULE PO SCH (18:10)
[2019-06-28] MEDS ORDERED: OLANZAPINE 5 MG TABLET PO SCH (22:00)
[2019-06-29] MEDS ORDERED: LEVOTHYROXINE SODIUM 0.112 MG TABLET ONE (04:35)
[2019-06-29] MEDS: LEVOTHYROXINE SODIUM 0.112 MG TABLET PO SCH (05:22)
[2019-06-29] MEDS: PANTOPRAZOLE SODIUM 20 MG TABLET.DR PO SCH (05:22)
[2019-06-29] MEDS ORDERED: OLANZAPINE 2.5 MG TABLET PO SCH (10:00)
[2019-06-29] MEDS: FLUOXETINE HCL 20 MG CAPSULE PO SCH (10:34)
[2019-06-29] MEDS: BUSPIRONE HCL 10 MG TABLET PO SCH (10:34)
[2019-06-29] MEDS: CITALOPRAM HYDROBROMIDE 20 MG TABLET PO SCH (10:34)
[2019-06-29] MEDS: CHOLECALCIFEROL (D3) 1,000 UNIT (25 MCG) TABLET PO SCH (10:34)
[2019-06-29] MEDS: DOXEPIN HCL 25 MG CAPSULE PO SCH (10:34)
[2019-06-29] MEDS: HYDROXYZINE PAMOATE 50 MG CAPSULE PO SCH ×2 (10:34→13:53)
[2019-06-29] MEDS: TIZANIDINE HCL 4 MG TABLET PO SCH ×2 (10:38→13:53)
[2019-06-29] MEDS: CYANOCOBALAMIN (VITAMIN B-12) 1,000 MCG TABLET PO SCH (10:39)
--- NOTE | 2019-06-29 12:21 | RADIOLOGY REPORT (SQ) ---
EXAM DESCRIPTION: CT HEAD WITHOUT COMPLETED DATE/TIME: 06/29/2019 12:11 pm REASON FOR STUDY: confusion, pt reports hx of brain tumors COMPARISON: 05/01/2017 10/27/2015 TECHNIQUE: Axial images acquired through the brain without intravenous contrast. Images reviewed wi th bone, brain and subdural windows. Additional sagittal and coronal reconstructions were generated. Images stored on PACS. All CT scanners at this facility use dose modulation, iterative reconstruction, and/or weight based d osing when appropriate to reduce radiation dose to as low as reasonably achievable (ALARA). [facility]: Dose Right [facility]: CareDose [facility]: Dose Right [facility]: Teradose 4D [facility]: Smart Razient RADIATION DOSE: CT Rad equipment meets quality standard of care and radiation dose reduction techniq ues were employed. CTDIvol: 53.2 mGy. DLP: 1070 mGy-cm. mGy. LIMITATIONS: None. FINDINGS: VENTRICLES: Normal size and contour. CEREBRUM: No masses. No hemorrhage. No midline shift. No evidence for acute infarction. Normal gra y/white matter differentiation. No areas of low density in the white matter. CEREBELLUM: No masses. No hemorrhage. No alteration of density. No evidence for acute infarction. EXTRAAXIAL SPACES: No fluid collections. No masses. ORBITS AND GLOBE: No intra- or extraconal masses. Normal contour of globe without masses. CALVARIUM: No fracture. PARANASAL SINUSES: No fluid or mucosal thickening. SOFT TISSUES: No mass or hematoma. OTHER: No other significant finding. IMPRESSION: NORMAL BRAIN CT WITHOUT CONTRAST. EVIDENCE OF ACUTE STROKE: NO. COMMENT: Quality ID # [id number]: Final reports with documentation of one or more dose reduction techniques (e.g., Automated exposure control, adjustment of the mA and/or kV according to patient size, use of iterative reconstruction technique) TECHNICAL DOCUMENTATION: JOB ID: [id number] [employer]- All Rights Reserved Reading location - IP/workstation name: [email or web address]
--- NOTE | 2019-06-29 13:07 | PSYCHOLOGICAL NOTE ---
Psych Note - Psych Note Date seen by psych provider: 06/29/19 Psych Note: Medication recommendations per [facility]'s contracted psychiatrist Dr. Jo DHILLON are as follows: Please discontinue home medications of Celexa, Latuda and Cogentin please decrease Prozac to 20 mg twice daily please decrease BuSpar to 10 mg twice daily Please add Zyprexa 2.5 mg every morning and 5 mg nightly continue Vistaril 50 every 8 hours PRN
[2019-06-29 13:15] VITALS: BP 125/90
--- NOTE | 2019-06-29 13:35 | ER Document Report ---
Doctor's Note Notes: Patient evaluated. She is calm, cooperative, no acute distress noted at this time. Vital signs have been within normal limits. No abnormal physical exam findings.
== END 2019-06-29 14:25 | disposition home or self-care (01) ==
LOC: ER 16:24
DX: R45.851 Suicidal ideations (principal); Z91.14 Patient's other noncompliance with medication regimen; Z87.891 Personal history of nicotine dependence; Z79.899 Other long term (current) drug therapy; I10 Essential (primary) hypertension
CPT/HCPCS: 93005; 99285; 36415; 80307 ×4; 84443; 85025; 80053; 81001; 70450; 93010; J3490 ×10

== ENCOUNTER 2020-04-24 00:05 | Emergency (ER) | payer SELFPAY ==
[2020-04-24] MEDS ORDERED: PROMETHAZINE HCL INJ 25 MG/1 ML VIAL IV ONE ×2 (03:49→05:42)
[2020-04-24] MEDS ORDERED: DIPHENHYDRAMINE HCL 50 MG/ML VIAL IV ONE (03:49)
[2020-04-24] MEDS ORDERED: HYDROCORTISONE SOD SUCCINATE INJ/PF 100 MG/2 ML SDV IV ONE (03:50)
[2020-04-24] MEDS ORDERED: NORMAL SALINE 1000 ML 1,000 ML IV ONE ×2 (03:54→10:12)
[2020-04-24] MEDS ORDERED: MORPHINE SULFATE 10 MG/ML INJ IV ONE (03:56)
--- NOTE | 2020-04-24 03:58 | ER Document Report ---
Entered by PABLO JORDAN SCRIBE 04/24/20 0253 Acting as scribe for:HAYDEE MALIK IV, MD ED General - General Mode of Arrival: Medic Information source: Patient TRAVEL OUTSIDE OF THE [place] IN LAST 30 DAYS: No <HAYDEE MALIK IV - Last Filed: 04/24/20 03:58> <CHILDSLA Matias - Last Filed: 04/24/20 13:19> - General Chief Complaint: Abdominal Pain Stated Complaint: FLU SYMPTOMS,WEAKNESS Time Seen by Provider: 04/24/20 02:51 Notes: This 39 year old female patient brought in by EMS presents to the ED today with complaints of generalized abdominal pain with associated nausea/vomiting for the last x1 week. Pain is cramping and stabbing in nature. Patient notes a productive cough with green sputum, generalized weakness, headache, and chills for the past week as well. She mentions diarrhea for the past x2 months and that she took Imodium without resolve. Denies fever or recent antibiotic treatment. She has not seen her PCP about this complaint. (HAYDEE MALIK IV) - Related Data Allergies/Adverse Reactions: amoxicillin [Amoxicillin] Allergy (Verified 03/21/18 16:13) ciprofloxacin [From Cipro] Allergy (Verified 03/21/18 16:13) tramadol [Tramadol] Allergy (Verified 03/21/18 16:13) gabapentin Adverse Reaction (Verified 06/27/19 16:37) olanzapine [From Zyprexa] Adverse Reaction (Verified 06/27/19 16:37) cillin Allergy (Uncoded 03/21/18 16:13) Past Medical History - General Information source: Patient, [facility] Records - Social History Smoking Status: Never Smoker Cigarette use (# per day): No Chew tobacco use (# tins/day): No Smoking Education Provided: No Drug Abuse: None Lives with: Spouse/Significant other Family History: Reviewed & Not Pertinent, Hypertension Patient has suicidal ideation: No Patient has homicidal ideation: No - Past Medical History Cardiac Medical History: Reports: Hx Hypercholesterolemia, Hx Hypertension Endocrine Medical History: Reports: Hx Graves' Disease, Hx Hypothyroidism Musculoskeletal Medical History: Reports Hx Fibromyalgia Psychiatric Medical History: Reports: Hx Anxiety, Hx Depression Past Surgical History: Reports: Hx Appendectomy, Hx Section - x2, Hx Cholecystectomy, Hx Hysterectomy, Hx Thyroid Surgery - Immunizations Hx Diphtheria, Pertussis, Tetanus Vaccination: No <HAYDEE MALIK IV - Last Filed: 04/24/20 03:58> Review of Systems - Review of Systems Constitutional: See HPI, Chills, Weakness. denies: Fever EENT: No symptoms reported Cardiovascular: No symptoms reported Respiratory: See HPI, Cough, Sputum Gastrointestinal: See HPI, Abdominal pain, Diarrhea, Nausea, Vomiting Genitourinary: No symptoms reported Female Genitourinary: No symptoms reported Musculoskeletal: See HPI, Muscle pain Skin: No symptoms reported Hematologic/Lymphatic: No symptoms reported Neurological/Psychological: No symptoms reported -: Yes All other systems reviewed and negative <HELENAHAYDEE ESTEBAN - Last Filed: 04/24/20 03:58> Physical Exam - General General appearance: Alert, Other - Appears fatigued In distress: None - HEENT Head: Normocephalic, Atraumatic Eyes: Normal Pupils: PERRL - Respiratory Respiratory status: No respiratory distress Chest status: Nontender Breath sounds: Normal Chest palpation: Normal - Cardiovascular Rhythm: Regular Heart sounds: Normal auscultation Murmur: No Friction rub: No Gallop: None auscultated - Abdominal Inspection: Normal Distension: No distension Bowel sounds: Normal Tenderness: Nontender - Abdomen soft Organomegaly: No organomegaly - Back Back: Normal, Nontender - Extremities General upper extremity: Normal inspection General lower extremity: Normal inspection - Neurological Neuro grossly intact: Yes Orientation: AAOx4 [place] Coma Scale Eye Opening: Spontaneous [place] Coma Scale Verbal: Oriented [place] Coma Scale Motor: Obeys Commands [place] Coma Scale Total: 15 - Psychological Associated symptoms: Normal affect, Normal mood - Skin Skin Temperature: Warm Skin Moisture: Dry Skin Color: Normal <HELENAHAYDEE ESTEBAN - Last Filed: 04/24/20 03:58> - Vital signs Vitals: Temp Pulse Resp BP Pulse Ox 97.7 F 67 16 145/90 H 100 04/24/20 00:39 04/24/20 00:39 04/24/20 00:39 04/24/20 00:39 04/24/20 00:39 Course - Laboratory Result Diagrams: 04/24/20 04:12 04/24/20 04:12 - Diagnostic Test Radiology reviewed: Image reviewed, Reports reviewed <LA CHILDS - Last Filed: 04/24/20 13:19> - Re-evaluation Re-evalutation: 04/24/20 13:08 Patient resting comfortably not showing any signs of nausea vomiting at this time also during the course of this ED visit patient has not had any diarrhea. Patient will be sent home with the containers to return stool to the lab regarding the stool ordered earlier today. (LA CHILDS) - Vital Signs Vital signs: Temp Pulse Resp BP Pulse Ox 98.1 F 67 18 123/82 87 L 04/24/20 04:07 04/24/20 00:39 04/24/20 11:01 04/24/20 11:01 04/24/20 11:01 04/24/20 13:08 Vital signs stable no acute process. (LA CHILDS) - Laboratory Laboratory results interpreted by me: 04/24/20 04/24/20 04/24/20 04:12 04:12 04:12 WBC 14.5 H RDW 16.9 H Lymph % (Auto) 12.6 L Absolute Neuts (auto) 12.1 H Seg Neutrophils % 84.0 H Potassium BUN Glucose Alkaline Phosphatase Total Protein TSH 84.80 H Free T4 0.31 L Free T3 pg/mL 1.06 L Urine Protein 100 H Urine Ketones 20 H 04/24/20 04:12 WBC RDW Lymph % (Auto) Absolute Neuts (auto) Seg Neutrophils % Potassium 3.5 L BUN 6 L Glucose 117 H Alkaline Phosphatase 226 H Total Protein 8.3 H TSH Free T4 Free T3 pg/mL Urine Protein Urine Ketones 04/24/20 13:08 Patient labs shows a white blood cell count elevation 14 5 patient has had di arrhea for 1 month. Patient is placed on IV Flagyl while in the department and will be discharged home on Flagyl for her chronic diarrhea patient is to return her stool samples for the culture sensitivity C. difficile and ova and parasites. Patient also has an elevated TSH because she has not been taking her Synthroid medications as prescribed she takes 0.125 mcg daily and has been out of her medications. Patient's vital signs will be rechecked prior to discharge patient is alert and oriented and does not show any signs of respiratory distress. (LA CHILDS) - Diagnostic Test Radiology results interpreted by me: 04/24/20 13:10 CT scan of abdomen did not disclose any acute process. (LA CHILDS) Discharge <HAYDEE MALIK IV - Last Filed: 04/24/20 03:58> <LA CHILDS - Last Filed: 04/24/20 13:19> - Discharge Clinical Impression: Abdominal pain, Diarrhea, Nausea and vomiting, Hypothyroidism Condition: Stable Disposition: HOME, SELF-CARE Instructions: Antinausea Medication ([facility]), Abdominal Pain ([facility]), Bulk Laxatives, Vomiting ([facility]) Prescriptions: Metronidazole [Flagyl 500 mg Tablet] 500 mg PO BID 5 Days #10 tablet Levothyroxine Sodium [Synthroid] 125 mcg PO DAILY #30 tablet Ondansetron [Zofran Odt 4 mg Tablet] 1 - 2 tab PO QID #30 tab.[email or web address] I personally performed the services described in the documentation, reviewed and edited the documentation which was dictated to the scribe in my presence, and it accurately records my words and actions.
--- NOTE | 2020-04-24 04:50 | RADIOLOGY REPORT (SQ) ---
CLINICAL INDICATION: COUGH. TECHNIQUE: A single portable AP view was obtained of the chest at 0434 hours. COMPARISON: None available. FINDINGS: The cardiomediastinal silhouette is normal. The lungs are grossly clear. No evidence of effusion or pneumothorax. The visualized bones are unremarkable. IMPRESSION: No evidence of active intrathoracic disease.
[2020-04-24 05:12] LABS: APPEARANCE,URINE CLOUDY; BILIRUBIN,URINE NEGATIVE (NEGATIVE); COLOR,URINE YELLOW; GLUCOSE, URINE NEGATIVE (NEGATIVE); KETONES,URINE 20 mg/dL (NEGATIVE); LEUKOCYTE ESTERASE,URINE NEGATIVE (NEGATIVE); NITRITE,URINE NEGATIVE (NEGATIVE); PROTEIN,URINE 100 mg/dL (NEGATIVE); URINE SPECIFIC GRAVITY 1.017; UROBILINOGEN,URINE NEGATIVE mg/dL (<2.0)
[2020-04-24] MEDS ORDERED: MORPHINE SULFATE 10 MG/ML INJ IV STA (05:41)
[2020-04-24 05:51] LABS: FREE T3 1.06 pg/mL (2.77-5.27); FREE T4 (FREE THYROXINE) 0.31 ng/dL (0.78-2.19)
[2020-04-24 06:05] LABS: THYROID STIMULATING HORMONE 84.8 uIU/mL (0.47-4.68)
[2020-04-24 08:08] LABS: ALBUMIN 4.9 g/dL (3.5-5.0); ALKALINE PHOSPHATASE 226 U/L (38-126); ANION GAP 13 (5-19); ASPARTATE AMINO TRANSFERASE 25 U/L (14-36); BILIRUBIN,TOTAL 0.5 mg/dL (0.2-1.3); BLOOD UREA NITROGEN 6 mg/dL (7-20); CALCIUM 9.7 mg/dL (8.4-10.2); CARBON DIOXIDE 26 mmol/L (22-30); CHLORIDE 104 mmol/L (98-107); GLUCOSE 117 mg/dL (75-110); POTASSIUM 3.5 mmol/L (3.6-5.0); TOTAL PROTEIN 8.3 g/dL (6.3-8.2)
[2020-04-24 08:17] LABS: ABSOLUTE LYMPHOCYTES (AUTO) 1.8 10^3/uL (0.5-4.7); ABSOLUTE MONOCYTES (AUTO) 0.4 10^3/uL (0.1-1.4); ABSOLUTE NEUT (AUTO) 12.1 10^3/uL (1.7-8.2); BASOPHILS % (AUTO) 0.3 % (0-2); EOSINOPHILS % (AUTO) 0.1 % (0-6); HEMATOCRIT 40.2 % (36.0-47.0); HEMOGLOBIN 13.4 g/dL (12.0-15.5); LYMPHOCYTES % (AUTO) 12.6 % (13-45); MEAN CORPUSCULAR HEMOGLOBIN 27.7 pg (27.0-33.4); MEAN CORPUSCULAR HGB CONC 33.3 g/dL (32.0-36.0); MEAN CORPUSCULAR VOLUME 83 fl (80-97); PLATELET COUNT 380 10^3/uL (150-450); RED BLOOD COUNT 4.83 10^6/uL (3.72-5.28); RED CELL DISTRIBUTION WIDTH 16.9 % (11.5-14.0); TOTAL CELLS COUNTED % (AUTO) 100 %; WHITE BLOOD COUNT 14.5 10^3/uL (4.0-10.5)
--- NOTE | 2020-04-24 09:09 | RADIOLOGY REPORT (SQ) ---
EXAM DESCRIPTION: CT ABD/PELVIS WITH IV ORAL IMAGES COMPLETED DATE/TIME: 04/24/2020 8:38 am REASON FOR STUDY: ABDOMINAL PAIN COMPARISON: 03/21/2018 TECHNIQUE: CT scan of the abdomen and pelvis performed using helical scanning technique with dynamic intravenous contrast injection. No oral contrast. Images reviewed with lung, soft tissue, and bone windows. Reconstructed coronal and sagittal MPR images reviewed. Delayed images for evaluation of the urinary system also acquired. All images stored on PACS. All CT scanners at this facility use dose modulation, iterative reconstruction, and/or weight based d osing when appropriate to reduce radiation dose to as low as reasonably achievable (ALARA). [facility]: Dose Right [facility]: CareDose [facility]: Dose Right [facility]: Teradose 4D [facility]: Pain Doctor CONTRAST TYPE AND DOSE: contrast/concentration: Isovue 350.00 mmol/ml; Total Contrast Delivered: 52. 0 ml; Total Saline Delivered: 72.0 ml RENAL FUNCTION: BUN 6; creatinine 0.98 RADIATION DOSE: CT Rad equipment meets quality standard of care and radiation dose reduction techniq ues were employed. CTDIvol: 17.9 - 20.2 mGy. DLP: 2187 mGy-cm.. LIMITATIONS: None. FINDINGS: LOWER CHEST: No significant findings. No nodules or infiltrates. LIVER: Hepatic steatosis. No masses. No intrahepatic biliary dilatation. SPLEEN: Normal size. No focal lesions. PANCREAS: No masses. No significant calcifications. No adjacent inflammation or peripancreatic fluid collections. Pancreatic duct not dilated. GALLBLADDER: Surgically absent. ADRENAL GLANDS: No significant masses or asymmetry. RIGHT KIDNEY AND URETER: No solid masses. No significant calcifications. No hydronephrosis or hyd roureter. LEFT KIDNEY AND URETER: No solid masses. No significant calcifications. No hydronephrosis or hydr oureter. AORTA AND VESSELS: No aneurysm. No dissection. Renal arteries, SMA, celiac without stenosis. RETROPERITONEUM: No retroperitoneal adenopathy, hemorrhage or masses. BOWEL AND PERITONEAL CAVITY: No masses or inflammatory changes. No free fluid or peritoneal masses. APPENDIX: Surgically absent. PELVIS: Status post hysterectomy. The bladder is largely decompressed. No free fluid. No masses or adenopathy. ABDOMINAL WALL: No masses. No hernias. BONES: No significant or acute findings. OTHER: No other significant finding. IMPRESSION: Status post cholecystectomy, appendectomy, and hysterectomy. No evidence of acute intra -abdominal infectious/inflammatory process. TECHNICAL DOCUMENTATION: JOB ID: [id number] Quality ID # [id number]: Final reports with documentation of one or more dose reduction techniques (e.g., Au tomated exposure control, adjustment of the mA and/or kV according to patient size, use of iterative reconstruction technique) 2010 [employer]- All Rights Reserved Reading location - IP/workstation name: [email or web address]
[2020-04-24] MEDS ORDERED: METRONIDAZOLE 500 MG/NS RTU 500 MG/100 ML RTUPB IV ONE (10:13)
[2020-04-24] MEDS ORDERED: LEVOTHYROXINE SODIUM 0.112 MG TABLET PO ONE (11:37)
[2020-04-24 13:38] VITALS: BP 144/101
== END 2020-04-24 13:56 | disposition home or self-care (01) ==
LOC: ER 00:05
DX: R10.84 Generalized abdominal pain (principal); R11.2 Nausea with vomiting, unspecified; E03.9 Hypothyroidism, unspecified; T38.1X6A Underdosing of thyroid hormones and substitutes, initial encounter; Z91.128 Patient's intentional underdosing of medication regimen for other reason; Z91.14 Patient's other noncompliance with medication regimen; R05 Cough; R53.1 Weakness; R51 Headache; R68.83 Chills (without fever); M79.10 Myalgia, unspecified site; R19.7 Diarrhea, unspecified; I10 Essential (primary) hypertension; Z90.49 Acquired absence of other specified parts of digestive tract; Z90.710 Acquired absence of both cervix and uterus; Z88.0 Allergy status to penicillin; Z88.1 Allergy status to other antibiotic agents; Z88.6 Allergy status to analgesic agent
CPT/HCPCS: 96376; 99285; 96361; 96375; 96365; 36415; 84439; 83690; 84443; 85025; 80053; 81001; 84481; 82533; 71045; 74177; J1200; J1720; J3490; J2270; J2550; J7030

== ENCOUNTER 2020-04-28 00:42 | Emergency (ER) | payer SELFPAY ==
[2020-04-28] MEDS ORDERED: NORMAL SALINE 1000 ML 1,000 ML IV ONE (01:48)
[2020-04-28] MEDS ORDERED: ONDANSETRON HCL INJ/PF 4 MG/2 ML SDV IV ONE (01:49)
--- NOTE | 2020-04-28 02:09 | ER Document Report ---
ED GI/ - General Chief Complaint: Nausea/Vomiting/Diarrhea Stated Complaint: NAUSEA,VOMITING,DIARRHEA Time Seen by Provider: 04/28/20 01:39 Notes: CHIEF COMPLAINT: Vomiting and diarrhea HPI: 39-year-old morbidly obese female presenting for continued vomiting and diarrhea over the last 2 weeks. States she was here 5 days ago for same compl aint did not get better. Patient did not follow-up with a primary care provider. No fever. Reports she had 4 episodes of vomiting yesterday with multiple episodes of watery diarrhea. No recent travel or prolonged antibiotic use. States that she was started on antibiotics on Saturday when she was evaluated here. Reports generalized abdominal discomfort. ROS: See HPI - all other systems were reviewed and are otherwise negative Constitutional: no fever Eyes: no drainage, no blurred vision ENT: no runny nose, no sore throat Cardiovascular: no chest pain Resp: no SOB, no cough GI: + vomiting, + diarrhea, + abdominal pain : no dysuria Integumentary: no rash Allergy: no hives Musculoskeletal: no extremity pain or swelling Neurological: no numbness/tingling, no weakness MEDICATIONS: I agree with the patient medications as charted by the RN. ALLERGIES: I agree with the allergies as charted by the RN. PAST MEDICAL HISTORY/PAST SURGICAL HISTORY: Reviewed and agree as charted by RN. SOCIAL HISTORY: Reviewed and agree as charted by RN. FAMILY HISTORY: No significant familial comorbid conditions directly related to patient complaint EXAM: Reviewed vital signs as charted by RN. CONSTITUTIONAL: Alert and oriented and responds appropriately to questions. Mildly ill-appearing; well-nourished HEAD: Normocephalic; atraumatic EYES: PERRL; Conjunctivae clear, sclerae non-icteric ENT: normal nose; no rhinorrhea; slightly dry mucous membranes; pharynx without lesions noted, no uvula edema or deviation, no tonsillar hypertrophy, phonation normal NECK: Supple without meningismus; non-tender; no cervical lymphadenopathy, no masses CARD: RRR, heart rate 60; no murmurs, no clicks, no rubs, no gallops; symmetric distal pulses RESP: Normal chest excursion without splinting or tachypnea; breath sounds clear and equal bilaterally; no wheezes, no rhonchi, no rales, pulse oximetry 98% on room air not hypoxic ABD/GI: Morbidly obese, normal bowel sounds; non-distended; soft, mild generalized tenderness on palpation without focal tenderness, no rebound, no guarding; no palpable organomegaly or masses. BACK: The back appears normal and is non-tender to palpation, there is no CVA tenderness EXT: Normal ROM in all joints; non-tender to palpation; no cyanosis, no effusions, no edema SKIN: Pale color for age and race; warm; dry; good turgor; no acute lesions noted NEURO: Moves all extremities equally; Motor and sensory function intact PSYCH: The patient's mood and manner are appropriate. Grooming and personal hygiene are appropriate. MDM: 39-year-old female history of hypothyroid, adrenal gland dysfunction presenting again for vomiting and diarrhea. Nursing reported that patient's heart rate went to the 1 30-1 40 range when standing. Will have them obtain orthostatics. Reviewed patient's records from previous visit had a mild leukocytosis of 14.3 no other significant abnormalities other than TSH of 80. She states that she is not on her hydrocortisone because she does not have a primary care provider. Has been out of her medicine for many months. Will ob tain screening labs again. Treat patient's nausea and obtain stool specimen if possible. TRAVEL OUTSIDE OF THE [place] IN LAST 30 DAYS: No - Related Data Allergies/Adverse Reactions: amoxicillin [Amoxicillin] Allergy (Verified 03/21/18 16:13) ciprofloxacin [From Cipro] Allergy (Verified 03/21/18 16:13) Penicillins Allergy (Verified 04/28/20 02:21) tramadol [Tramadol] Allergy (Verified 03/21/18 16:13) gabapentin Adverse Reaction (Verified 06/27/19 16:37) olanzapine [From Zyprexa] Adverse Reaction (Verified 06/27/19 16:37) cillin Allergy (Uncoded 03/21/18 16:13) Past Medical History - Social History Smoking Status: Current Every Day Smoker Family History: Hypertension - Past Medical History Cardiac Medical History: Reports: Hx Hypercholesterolemia, Hx Hypertension Endocrine Medical History: Reports: Hx Graves' Disease, Hx Hypothyroidism Renal/ Medical History: Denies: Hx Peritoneal Dialysis Musculoskeletal Medical History: Reports Hx Fibromyalgia Psychiatric Medical History: Reports: Hx Anxiety, Hx Depression Past Surgical History: Reports: Hx Appendectomy, Hx Section - x2, Hx Cholecystectomy, Hx Hysterectomy, Hx Thyroid Surgery - Immunizations Hx Diphtheria, Pertussis, Tetanus Vaccination: No Physical Exam - Vital signs Vitals: Temp 97.7 F 04/28/20 00:42 Course - Re-evaluation Re-evalutation: 04/28/20 03:28 Patient was not orthostatic. Patient now admitting she only had 3 episodes of diarrhea yesterday and 3 episodes of vomiting. 04/28/20 05:20 I spoke with the patient at length. She is still complaining of pain and nausea. She is specifically requesting morphine for her pain. I discussed this with the patient. She does not appear significantly dehydrated, minimal ketones, no bump in her creatinine no specific change in her lab work from 4 days ago. Discussed with attending, no indication without focal pain to reimage with CT. She did have a positive marijuana screen on her toxicology likely cyclic vomiter. Will give Compazine, place capsaicin cream on the abdomen. She specifically request GI cocktail minutes after telling me that she was very nauseated. 04/28/20 06:22 Patient has had no actual vomiting here in the emergency department. She is unable to give us a stool specimen. I spoke with the patient at length about cyclic vomiting syndrome which is likely what she has she uses marijuana as a substitute for chronic pain issues from her back. States she was on pain medicine for a long time stopped using the pain medications a year ago but switched over to marijuana use. She is aware that her vomiting will likely continue as long as she is using marijuana. She may go to the health department to establish with care she states she cannot afford to see specialists, she is aware that we are limited in how we may resolve her issue if she will not stop smoking marijuana. She needs the care of a primary care provider and a specialist. - Vital Signs Vital signs: Temp Pulse Resp BP Pulse Ox 98.5 F 61 20 148/75 H 99 04/28/20 04:18 04/28/20 03:27 04/28/20 04:02 04/28/20 04:02 04/28/20 04:02 - Laboratory Result Diagrams: 04/28/20 02:50 04/28/20 02:50 Laboratory results interpreted by me: 04/28/20 04/28/20 04/28/20 02:50 02:50 02:50 WBC 15.0 H RDW 17.0 H Lymph % (Auto) 11.3 L Absolute Neuts (auto) 12.7 H Seg Neutrophils % 84.8 H Glucose 180 H Magnesium 2.5 H Alkaline Phosphatase 211 H TSH 121.00 H Urine Ketones 04/28/20 04:30 WBC RDW Lymph % (Auto) Absolute Neuts (auto) Seg Neutrophils % Glucose Magnesium Alkaline Phosphatase TSH Urine Ketones 20 H Discharge - Discharge Clinical Impression: Cyclic vomiting syndrome, Marijuana use Condition: Stable Disposition: HOME, SELF-CARE Additional Instructions: Continue the Reglan for nausea. It is likely that the marijuana use is causing a cyclic vomiting syndrome where you have abdominal pain and recurrent vomiting. Your lab work today is unchanged essentially from 4 days ago. You need to establish with a primary care provider for further evaluation and treatment of your symptoms, you may go to the Health Department if you do not have a PCP. You need to follow-up with gastroenterology for further evaluation of your symptoms. You need to stop using marijuana as this is likely causing a lot of your symptoms. Take Bentyl for abdominal pain or spasm. Prescriptions: Dicyclomine HCl [Bentyl 20 mg Tablet] 20 mg PO Q6H PRN #20 tablet PRN Reason: Metoclopramide HCl [Reglan 10 mg Tablet] 10 mg PO ACHS #40 tablet
[2020-04-28 03:09] LABS: ABSOLUTE LYMPHOCYTES (AUTO) 1.7 10^3/uL (0.5-4.7); ABSOLUTE MONOCYTES (AUTO) 0.6 10^3/uL (0.1-1.4); ABSOLUTE NEUT (AUTO) 12.7 10^3/uL (1.7-8.2); BASOPHILS % (AUTO) 0.1 % (0-2); EOSINOPHILS % (AUTO) 0.1 % (0-6); HEMATOCRIT 38.2 % (36.0-47.0); HEMOGLOBIN 12.5 g/dL (12.0-15.5); LYMPHOCYTES % (AUTO) 11.3 % (13-45); MEAN CORPUSCULAR HEMOGLOBIN 27.1 pg (27.0-33.4); MEAN CORPUSCULAR HGB CONC 32.7 g/dL (32.0-36.0); MEAN CORPUSCULAR VOLUME 83 fl (80-97); MONOCYTES % (AUTO) 3.7 % (3-13); PLATELET COUNT 345 10^3/uL (150-450); SEGMENTED NEUTROPHILS % (AUTO) 84.8 % (42-78); TOTAL CELLS COUNTED % (AUTO) 100 %
[2020-04-28 03:28] LABS: ALBUMIN 4.7 g/dL (3.5-5.0); ALKALINE PHOSPHATASE 211 U/L (38-126); ANION GAP 16 (5-19); ASPARTATE AMINO TRANSFERASE 23 U/L (14-36); BILIRUBIN,TOTAL 0.6 mg/dL (0.2-1.3); BLOOD UREA NITROGEN 7 mg/dL (7-20); CALCIUM 9.9 mg/dL (8.4-10.2); CARBON DIOXIDE 22 mmol/L (22-30); CHLORIDE 103 mmol/L (98-107); GLUCOSE 180 mg/dL (75-110); POTASSIUM 3.8 mmol/L (3.6-5.0)
[2020-04-28] MEDS ORDERED: DICYCLOMINE HCL INJ 20 MG/2 ML AMPULE IM ONE (03:45)
[2020-04-28 04:53] LABS: APPEARANCE,URINE CLOUDY; BILIRUBIN,URINE NEGATIVE (NEGATIVE); COLOR,URINE YELLOW; GLUCOSE, URINE NEGATIVE (NEGATIVE); KETONES,URINE 20 mg/dL (NEGATIVE); LEUKOCYTE ESTERASE,URINE NEGATIVE (NEGATIVE); NITRITE,URINE NEGATIVE (NEGATIVE); PROTEIN,URINE NEGATIVE (NEGATIVE); URINE SPECIFIC GRAVITY 1.011; UROBILINOGEN,URINE NEGATIVE mg/dL (<2.0)
[2020-04-28 05:05] LABS: URINE AMPHETAMINES SCREEN NEGATIVE; URINE BARBITURATES SCREEN NEGATIVE; URINE BENZODIAZEPINES SCREEN NEGATIVE; URINE COCAINE SCREEN NEGATIVE; URINE MARIJUANA (THC) SCREEN UNCONFIRMED POSITIVE; URINE METHADONE SCREEN NEGATIVE; URINE PHENCYCLIDINE SCREEN NEGATIVE
[2020-04-28] MEDS ORDERED: MAG HYDROX/AL HYDROX/SIMETH SUSP 30 ML UDCUP PO ONE (05:19)
[2020-04-28] MEDS ORDERED: LIDOCAINE 2% VISCOUS SOLN 15 ML UDCUP PO ONE (05:19)
[2020-04-28] MEDS ORDERED: CAPSAICIN HP 0.075% CREAM 60 GM TP ONE (05:19)
[2020-04-28] MEDS ORDERED: PROCHLORPERAZINE EDISYLATE INJ 10 MG/2 ML VIAL IV ONE (05:19)
[2020-04-28] MEDS ORDERED: CAPSAICIN 0.025% CREAM 60 GM ONE (06:00)
[2020-04-28] MEDS ORDERED: CAPSAICIN 0.025% CREAM 60 GM TP ONE (06:11)
[2020-04-28 07:13] VITALS: BP 127/72
--- NOTE | 2020-04-28 09:51 | EKG REPORT ---
SEVERITY:- ABNORMAL ECG - SINUS RHYTHM WITH SA NODE EXIT BLOCK ABNORMAL T, CONSIDER ISCHEMIA, LATERAL LEADS : Confirmed by: Bárbara Swenson 28-Apr-2020 09:50:50
== END 2020-04-28 07:38 | disposition home or self-care (01) ==
LOC: ER 00:42
DX: R11.15 Cyclical vomiting syndrome unrelated to migraine (principal); F12.10 Cannabis abuse, uncomplicated; R19.7 Diarrhea, unspecified; Z88.0 Allergy status to penicillin; Z88.1 Allergy status to other antibiotic agents; Z88.8 Allergy status to other drugs, medicaments and biological substances; F17.200 Nicotine dependence, unspecified, uncomplicated; I10 Essential (primary) hypertension
CPT/HCPCS: 93005; 99284; 96372; 96361; 96374; 96375; 36415; 83690; 83735; 84443; 85025; 80053; 81001; 80307; 93010; J0500; J3490 ×2; J0780; J2405; J7030